=== PATIENT | female | born 1950 | race Hispanic/Latino ===

== ENCOUNTER 2021-08-08 05:21 | Emergency (ER) | payer SELFPAY ==
[2021-08-08] VITALS (16 sets, daily range): BP systolic 90–147; BP diastolic 59–89; PULSE 58–61; RESP 14–18; TEMP 36.2; O2SAT 97–100
--- NOTE | ~2021-08-08 | CT_ITS ---
EXAMINATION: CT brain wo con DATE: 08/08/2021 05:56 INDICATION: Headache and dizziness TECHNIQUE: Computed tomography (CT) of the head was performed without intravenous contrast. The dose- length product was 605.33 mGy-cm. Automated exposure control and iterative reconstruction technique w ere employed. COMPARISON: None FINDINGS: Mild generalized atrophy. There are scattered mild periventricular and subcortical white ma tter changes, most likely related to small vessel ischemic disease (microangiopathy). Paranasal sinus es and mastoids are pneumatized. There is intracranial atherosclerosis. No depressed skull fractures. No acute intracranial hemorrhage, infarction, mass or mass effect. IMPRESSION: 1. No acute intracranial abnormality. 2: Chronic age-related findings. Reviewed, dictated and finalized at location A.
--- NOTE | 2021-08-08 05:39 | ED.HA ---
HPI - Headache General Chief Complaint: Headache <Farooq Antoine MD - Last Filed: 08/13/21 13:37> Stated Complaint: headaches, dry mouth <Farooq Antoine MD - Last Filed: 08/13/21 13:37> Time Seen by Provider: 08/08/21 05:26 <Farooq Antoine MD - Last Filed: 08/13/21 13:37> Source: patient and family <Farooq Antoine MD - Last Filed: 08/13/21 13:37> Mode of arrival: ambulatory <Farooq Antoine MD - Last Filed: 08/13/21 13:37> Limitations: language barrier <Farooq Antoine MD - Last Filed: 08/13/21 13:37> History of Present Illness HPI Narrative: 71-year-old nondiabetic was brought in by family with complaints of headache for last 1 week, not feeling well for past few days. Woke up with headache. Family states that she recently moved from [place] 3 months ago presently not taking any medication for diabetes. Also complains of dry mouth. No history of fever or chills or abdominal pain. <Farooq Antoine MD - Last Filed: 08/13/21 13:37> MD elicited complaint: headache <Farooq Antoine MD - Last Filed: 08/13/21 13:37> Pertinent past history: other (diabetes) <Farooq Antoine MD - Last Filed: 08/13/21 13:37> Onset (ago): week(s) (1) <Farooq Antoine MD - Last Filed: 08/13/21 13:37> Location: occipital <Farooq Antoine MD - Last Filed: 08/13/21 13:37> Quality & Timing: aching <Farooq Antoine MD - Last Filed: 08/13/21 13:37> Exacerbating factors: none <Farooq Antoine MD - Last Filed: 08/13/21 13:37> Relieving factors: nothing <Farooq Antoine MD - Last Filed: 08/13/21 13:37> Related Data Allergies/Adverse Reactions: Allergies Allergy/AdvReac Type Severity Reaction Status Date / Time No Known Allergies Allergy Verified 08/08/21 05:30 <Farooq Antoine MD - Last Filed: 08/13/21 13:37> Review of Systems Constitutional: Constitutional: Reports no additional constitutional complaints <Farooq Antoine MD - Last Filed: 08/13/21 13:37> Eyes: Eyes: Reports no additional eye complaints <Farooq Antoine MD - Last Filed: 08/13/21 13:37> ENT: Reports system reviewed and no additional complaints, except as documented <Farooq Antoine MD - Last Filed: 08/13/21 13:37> Cardiovascular: Cardiovascular: Reports no additional cardiovascular complaints <Farooq Antoine MD - Last Filed: 08/13/21 13:37> Respiratory: Respiratory: Reports no additional respiratory complaints <Farooq Antoine MD - Last Filed: 08/13/21 13:37> Gastrointestinal: Gastrointestinal: Reports no additional gastrointestinal complaints <Farooq Antoine MD - Last Filed: 08/13/21 13:37> Musculoskeletal: Musculoskeletal: Reports no additional musculoskeletal complaints <Farooq Antoine MD - Last Filed: 08/13/21 13:37> Neurologic: Reports as per HPI <Farooq Antoine MD - Last Filed: 08/13/21 13:37> Endocrine: Endocrine: Reports as per HPI, Reports fatigue and Reports polydipsia <Farooq Antoine MD - Last Filed: 08/13/21 13:37> Hematologic/Lymphatic: Hematologic/Lymphatic: Reports no additional hematologic/lymphatic complaints <Farooq Antoine MD - Last Filed: 08/13/21 13:37> Exam Narrative: GENERAL: Well-appearing, well-nourished, and in no acute distress. HEAD: Normocephalic, atraumatic. EYES: PERRLA and EOMI. NECK: Supple. CHEST: Clear to auscultation. No respiratory distress. HEART: Regular rate and rhythm. No murmur heard. Normal peripheral pulses. ABDOMEN: Soft, nontender, nondistended, normal active bowel sounds. EXTREMITIES: Normal range of motion. No edema. SKIN: Warm, dry, no rash. NEURO: No focal deficits. Alert and oriented x3. PSYCH: Normal mood and affect. <Farooq Antoine MD - Last Filed: 08/13/21 13:37> Course Course Emergency Course: 71-year-old with a history of headache, diabetes not on any medication for last several months. Patient does not recall the name of the medication that she was taking in [place]. Her sugars are elevated.
[2021-08-08 05:41] LABS: Glucose Point of Care 315 mg/dl (65-105)
[2021-08-08 05:47] LABS: Basophils Absolute Auto 0.1 K/mm3 (0.0-0.1); Basophils Percent Auto 0.7 % (0.2-1.2); Eosinophils Absolute Auto 0.2 K/mm3 (0-0.3); Eosinophils Percent Auto 2.7 % (0-4.4); Hematocrit 40.3 % (37.0-47.0); Hemoglobin 14.2 g/dL (12.0-15.0); Immature Granulocyte Absolute 0.02 K/mm3 (0.00-0.031); Immature Granulocyte Percent A 0.3 % (0-0.5); Lymphocytes Absolute Auto 3.01 K/mm3 (0.9-3.2); Lymphocytes Percent Auto 41.1 % (18.3-44.2); Mean Corpuscular HGB Conc 35.2 g/dl (32-36); Mean Corpuscular Hemoglobin 31.3 pg (26-34); Mean Corpuscular Volume 88.8 fl (80-100); Mean Platelet Volume 10.9 fl (7.4-10.4); Monocytes Absolute Auto 0.7 K/mm3 (0.1-0.6); Monocytes Percent Auto 9.4 % (2.6-8.5); Neutrophils Absolute Auto 3.4 K/mm3 (1.3-6.7); Neutrophils Percent Auto 45.8 % (45.5-73.1); Platelet Count Result 178 k/mm3 (150-375); Red Blood Count 4.54 M/mm3 (4.2-5.4); Red Cell Distribution Width 11.9 % (11.5-14.5); White Blood Count 7.3 K/mm3 (4.5-10.0)
[2021-08-08] MEDS: SODIUM CHLORIDE 0.9% IV 1,000 ML 100 ML IV CONT (05:57)
[2021-08-08] MEDS: ONDANSETRON INJ 4 MG/2 ML VIAL IV PUSH (05:58)
[2021-08-08] MEDS: KETOROLAC 30 MG/ML VIAL (*BKC) 15 MG IV PUSH (05:58)
[2021-08-08 06:05] LABS: Alanine Aminotransferase 29 U/L (6-35); Albumin Level 4.2 g/dL (3.5-5.1); Alkaline Phosphatase 119 U/L (38-126); Anion Gap 7 mmol/L (8-16); Aspartate Amino Transferase 30 U/L (14-36); Bilirubin,Total 0.7 mg/dL (0.2-1.3); Blood Urea Nitrogen 13 mg/dL (7-17); Calcium 8.3 mg/dL (8.4-10.2); Carbon Dioxide 24 mmol/L (22-30); Chloride 103 mmol/L (98-107); Estimated Glomerular Filt Rate > 60; Glucose 321 mg/dL (65-110); Potassium 3.8 mmol/L (3.4-5.0); Sodium 134 mmol/L (137-145)
[2021-08-08 06:35] LABS: Appearance Urine Clear (Clear); Bilirubin Urine Negative (Negative); Blood Urine Negative (Negative); Color Urine Yellow (Yellow); Glucose Urine UA 2+ mg/dL (Negative); Ketones Urine Negative (Negative); Leukocyte Esterase Ur Negative LEU/UL (Negative); Nitrate Urine Negative (Negative); Protein Urine Negative (Negative); Urobilinogen Urine 0.2 mg/dL (<2.0); pH Urine 5.5 (5.0-9.0)
[2021-08-08] MEDS: INSULIN HUMAN REGULAR (*BKC) 100 UNITS/ML 6 UNITS SUB-Q (06:35)
[2021-08-08] MEDS: MORPHINE SULFATE (*CRX) 2 MG/ML INJ IV PUSH (06:36)
[2021-08-08 06:38] LABS: Bacteria Urine Trace /hpf; Squamous Epithelial Cell Urine Occasional /hpf (Few); WBC Urine 16-20 /hpf
[2021-08-08 06:39] LABS: Add Urine Microscopic? YES
--- NOTE | 2021-08-08 07:35 | PC.NURSE ---
CT notified for CT results, will contact radiologist to get results read.
[2021-08-08 07:52] LABS: Glucose Point of Care 276 mg/dl (65-105)
[2021-08-08] MEDS: MECLIZINE HCL 25 MG TABLET PO (09:21)
== END 2021-08-08 11:08 | disposition home or self-care (01) ==
PROVIDERS: Emergency Provider Family Medicine
DX: E11.65 Type 2 diabetes mellitus with hyperglycemia (principal); R51.9 Headache, unspecified
CPT/HCPCS: 36415; 70450; 80053; 81001; 82948; 85025; 87086; 87088; 87147; 96361; 96374; 96375; 99284; A9270; J1815; J1885; J2270; J2405; J7030

== ENCOUNTER 2021-11-17 07:45 | Emergency (ER) | payer SELFPAY ==
[2021-11-17] VITALS (16 sets, daily range): BP systolic 92–144; BP diastolic 62–82; PULSE 58–68; RESP 12–19; TEMP 36.4; O2SAT 95–100
--- NOTE | ~2021-11-17 | XR_ITS ---
EXAMINATION: XR chest 1V portable 11/17/2021 09:05 INDICATION: Headache and nausea PROCEDURE: AP portable chest COMPARISON: No prior studies for comparison. FINDINGS: The lungs are clear. The cardiomediastinal silhouette is within normal limits. There are no pleural effusions. There is no pneumothorax suspected. IMPRESSION: 1: NO ACUTE CARDIOPULMONARY DISEASE. Reviewed, dictated and finalized at location A.
--- NOTE | ~2021-11-17 | CT_ITS ---
EXAMINATION: CTA brain carotid DATE: 11/17/2021 11:28 CDT INDICATION: Headache. TECHNIQUE: Computed tomographic angiography (CTA) of the head was performed without and with 100 mL O mnipaque-350 intravenous contrast. CTA of the neck was performed with intravenous contrast. The dose- length product was 1517.94 mGy-cm. Maximum intensity projection and volume rendered 3D-reconstruction s were created by the technologist on a separate workstation. Automated exposure control and iterativ e reconstruction technique were employed. COMPARISON: CT dated 08/08/2021 FINDINGS: HEAD CTA: No acute intracranial hemorrhage, infarction, mass or mass effect. There are scattered mild periventricular and subcortical white matter changes, most likely related to small vessel ischemic d isease (microangiopathy). No ventriculomegaly or midline shift. Small chronic right lacunar infarctio n. Paranasal sinuses are unremarkable. No depressed skull fractures. Mastoids are pneumatized. There is mild atherosclerosis in the cavernous sinuses. The anterior, middle and posterior cerebral arterie s are symmetric without significant stenosis, occlusion or aneurysm. NECK CTA: There is ascending thoracic aortic aneurysm measuring 4.8 cm, partially visualized. There a re dilated pulmonary arteries consistent with pulmonary hypertension. There is atherosclerosis of the aortic arch. No evidence for aortic significant vertebral stenosis or dissection. No evidence for si gnificant stenosis, dissection or occlusion of the internal carotid arteries. Thyroid gland contains multiple low-density masses and coarse calcifications. Consider correlation with ultrasound. There is 0% stenosis of the proximal right internal carotid artery relative to normal distal artery l umen diameter (NASCET criteria). There is 0% stenosis of the proximal left internal carotid artery re lative to normal distal artery lumen diameter. IMPRESSION: 1: No significant vascular abnormality of the head or neck. Mild intracranial atherosclerosis. 2: Partially visualized ascending thoracic aortic aneurysm measuring 4.8 cm. 3: Small chronic right lacunar infarction. 4: Chronic age-related findings. Reviewed, dictated and finalized at location A.
--- NOTE | 2021-11-17 08:22 | ECG_ITS ---
Measurements Intervals [place] Rate: 59 P: -21 [place]: 147 QRS: -30 QRSD: 92 T: 0 QT: 411 QTc: 410 Interpretive Statements SINUS BRADYCARDIA INCOMPLETE RIGHT BUNDLE BRANCH BLOCK DELAYED PRECORDIAL R/S TRANSITION CONSIDER INFERIOR INFARCT, AGE INDETERMINATE NONSPECIFIC T-WAVE ABNORMALITY- ANTEROLAT/HIGH LAT LEADS BASELINE WANDER- II ABNORMAL ECG NO PREVIOUS ECG AVAILABLE FOR COMPARISON Electronically Signed On 11-17-2021 13:50:06 CDT by Doroteo Dumont D.O.
--- NOTE | 2021-11-17 08:29 | ED.HA ---
HPI - Headache General Chief Complaint: Headache Stated Complaint: HENNING DRY MOUTH Time Seen by Provider: 11/17/21 07:59 History of Present Illness HPI Narrative: Patient is a 71-year-old female who presents ER with headache. 10/10 and bitemporal/frontal. Began at 4 AM. No alleviating factors. Reports she feels like her vision is a little darker than typical. No fevers or chills or sweats. No trauma. Has had headaches like this in the past. Has history of CVA and diabetes. Patient is Pakistani-speaking and family is at bedside. She has not tried any pain medication. Related Data Allergies Allergy/AdvReac Type Severity Reaction Status Date / Time No Known Allergies Allergy Verified 11/17/21 07:45 Review of Systems Review of Systems: All systems reviewed & are unremarkable except as noted in HPI and below Constitutional: Constitutional: Denies chills and Denies fever(s) Eyes: Eyes: Reports change in vision and Denies photophobia ENT: Denies nasal congestion and Denies sore throat Cardiovascular: Cardiovascular: Denies chest pain Respiratory: Respiratory: Denies cough and Denies dyspnea Gastrointestinal: Gastrointestinal: Denies abdominal pain, Denies nausea and Denies vomiting Neurologic: Denies dizziness, Reports headache(s), Denies focal weakness and Denies numbness PMFSH Past Medical History Medical History (Updated 11/17/21 @ 12:35 by Aleksandr Nielsen MD) CVA (cerebral vascular accident) Diabetes Surgical History Surgical History (Updated 11/17/21 @ 08:31 by Aleksandr Nielsen MD) No history of previous surgery Exam Narrative: GENERAL: Well-appearing, well-nourished, and in no acute distress. HEAD: Normocephalic, atraumatic. EYES: PERRLA and EOMI. ENT: Mucous membranes moist. CHEST: Clear to auscultation. No respiratory distress. HEART: Regular rate and rhythm. Normal peripheral pulses. ABDOMEN: Soft, nontender, nondistended. EXTREMITIES: Normal range of motion. No edema. SKIN: Warm, dry, no rash. NEURO: No focal deficits. No facial droop. Alert and oriented x3. Course Course Emergency Course: Headache resolved with morphine. Labs unremarkable. Discharge home. Patient does have outpatient follow-up scheduled with PCP. Patient family educated about thoracic aortic aneurysm and need for follow-up and monitoring. Vital Signs Vital signs: Vital Signs Temperature 97.6 F 11/17/21 08:01 Pulse Rate 59 L 11/17/21 08:01 Respiratory Rate 14 11/17/21 08:01 Blood Pressure 143/80 H 11/17/21 08:01 Pulse Oximetry 100 11/17/21 08:01 Temperature 97.6 F 11/17/21 08:01 Pulse Rate 62 11/17/21 12:16 Respiratory Rate 17 11/17/21 12:16 Blood Pressure 112/70 11/17/21 12:16 Pulse Oximetry 97 11/17/21 12:16 MDM - Headache Lab Data Result diagrams: 11/17/21 09:37 11/17/21 10:04 Labs: Lab Results 11/17/21 11/17/21 11/17/21 Range/Units 09:17 09:37 09:37 WBC 5.7 (4.5-10.0) K/mm3 RBC 4.49 (4.2-5.4) M/mm3 Hgb 14.0 (12.0-15.0) g/dL Hct 40.6 (37.0-47.0) % MCV 90.4 (80-100) fl MCH 31.2 (26-34) pg MCHC 34.5 (32-36) g/dl RDW 12.0 (11.5-14.5) % Plt Count 197 (150-375) k/mm3 MPV 11.0 H (7.4-10.4) fl Immature Gran % (Auto) 0.4 (0-0.5) % Neut % (Auto) 48.4 (45.5-73.1) % Lymph % (Auto) 40.3 (18.3-44.2) % [place] % (Auto) 8.6 H (2.6-8.5) % Eos % (Auto) 1.8 (0-4.4) % Baso % (Auto) 0.5 (0.2-1.2) % Lymph # (Auto) 2.29 (0.9-3.2) K/mm3 [place] # (Auto) 0.5 (0.1-0.6) K/mm3 Eos # (Auto) 0.1 (0-0.3) K/mm3 Baso # (Auto) 0.0 (0.0-0.1) K/mm3 Abs Immat Gran (auto) 0.02 (0.00-0.031) K/mm3 Absolute Neuts (auto) 2.8 (1.3-6.7) K/mm3 Absolute Nucleated RBC 0.0 (0.0-0.012) K/mm3 Nucleated RBC % 0.0 (0.0-0.2) % PT 13.1 (11.1-14.7) Seconds INR 1.0 APTT 21.9 L (22.3-36.8) SECONDS Sodium (137-145) mmol/L Potassium (3.
[2021-11-17 09:25] LABS: Appearance Urine Clear (Clear); Bilirubin Urine Negative (Negative); Blood Urine Negative (Negative); Color Urine Yellow (Yellow); Glucose Urine UA 1+ mg/dL (Negative); Ketones Urine Negative (Negative); Leukocyte Esterase Ur Negative LEU/UL (Negative); Nitrate Urine Negative (Negative); Protein Urine Negative (Negative); Urobilinogen Urine 0.2 mg/dL (<2.0)
[2021-11-17 09:30] LABS: Bacteria Urine Trace /hpf; RBC Urine 0-2 /hpf (0-2); WBC Urine 0-3 /hpf
[2021-11-17 09:31] LABS: Add Urine Microscopic? YES
[2021-11-17 09:43] LABS: Basophils Percent Auto 0.5 % (0.2-1.2); Eosinophils Absolute Auto 0.1 K/mm3 (0-0.3); Eosinophils Percent Auto 1.8 % (0-4.4); Hematocrit 40.6 % (37.0-47.0); Immature Granulocyte Absolute 0.02 K/mm3 (0.00-0.031); Immature Granulocyte Percent A 0.4 % (0-0.5); Lymphocytes Absolute Auto 2.29 K/mm3 (0.9-3.2); Lymphocytes Percent Auto 40.3 % (18.3-44.2); Mean Corpuscular HGB Conc 34.5 g/dl (32-36); Mean Corpuscular Hemoglobin 31.2 pg (26-34); Mean Corpuscular Volume 90.4 fl (80-100); Monocytes Absolute Auto 0.5 K/mm3 (0.1-0.6); Monocytes Percent Auto 8.6 % (2.6-8.5); Neutrophils Absolute Auto 2.8 K/mm3 (1.3-6.7); Neutrophils Percent Auto 48.4 % (45.5-73.1); Platelet Count Result 197 k/mm3 (150-375); Red Blood Count 4.49 M/mm3 (4.2-5.4); White Blood Count 5.7 K/mm3 (4.5-10.0)
[2021-11-17 09:53] LABS: Partial Thromboplastin Time 21.9 SECONDS (22.3-36.8); Prothrombin Time 13.1 Seconds (11.1-14.7)
[2021-11-17] MEDS: MORPHINE SULFATE (*CRX) 4 MG/ML INJ IV PUSH (10:04)
[2021-11-17 10:31] LABS: Anion Gap 9 mmol/L (8-16); Blood Urea Nitrogen 7 mg/dL (7-17); Calcium 8.2 mg/dL (8.4-10.2); Carbon Dioxide 24 mmol/L (22-30); Chloride 105 mmol/L (98-107); Estimated Glomerular Filt Rate > 60; Glucose 231 mg/dL (65-110); Potassium 3.3 mmol/L (3.4-5.0); Sodium 138 mmol/L (137-145)
[2021-11-17 10:42] LABS: Troponin I < 0.012 ng/mL (0.000-0.034)
[2021-11-17] MEDS: SODIUM CHLORIDE 0.9% IV 1,000 ML 999 ML IV CONT (14:27)
[2021-11-17] MEDS: MECLIZINE HCL 25 MG TABLET PO (14:27)
== END 2021-11-17 16:22 | disposition home or self-care (01) ==
PROVIDERS: Emergency Provider Emergency Medicine
DX: R51.9 Headache, unspecified (principal); I71.2 Thoracic aortic aneurysm, without rupture; R42 Dizziness and giddiness; E11.9 Type 2 diabetes mellitus without complications; Z86.73 Personal history of transient ischemic attack (TIA), and cerebral infarction without residual deficits; Z79.84 Long term (current) use of oral hypoglycemic drugs; I67.2 Cerebral atherosclerosis
CPT/HCPCS: 36415; 70496; 70498; 71045; 80048; 81001; 84484; 85025; 85610; 85730; 93005; 96361; 96374; 99284; A9270; J2270; J7030; Q9967

== ENCOUNTER 2021-11-19 16:02 | Emergency (ER) | payer SELFPAY ==
[2021-11-19] VITALS (21 sets, daily range): BP systolic 96–141; BP diastolic 75–85; PULSE 63–90; RESP 13–20; TEMP 36.4; O2SAT 94–100
--- NOTE | ~2021-11-19 | CT_ITS ---
EXAMINATION: CT abdomen pelvis w con DATE: 11/19/2021 18:06 INDICATION: Left lower abdominal pain TECHNIQUE: Computed tomography (CT) of the abdomen and pelvis was performed with 100 mL Omnipaque-350 intravenous contrast. Automated exposure control and iterative reconstruction technique were employe d. The dose-length product was 194.18 mGy-cm. COMPARISON: None FINDINGS: Calcified nodule at the lingula consistent with old granulomatous disease. Heart size is normal. No p ericardial or pleural effusion. Aortic valve calcification. Ascending thoracic aortic aneurysm measur ing up to 4.6 cm in maximal diameter. Abdominal aorta and visualized descending thoracic aorta are no rmal in caliber with no dissection. Liver, gallbladder, spleen, pancreas, bilateral adrenal glands an d kidneys are normal. Bladder, uterus and bilateral adnexa are unremarkable. No abnormal bowel wall t hickening or obstruction. The appendix is not visualized. No pericecal inflammatory change to suggest acute appendicitis. No free intraperitoneal gas or fluid. No pathologically enlarged abdominal or pe lvic lymphadenopathy. Mild thoracolumbar dextrocurvature with mild spondylosis. Chronic appearing com pression fractures at L1 and L2. IMPRESSION: 1. No acute intra-abdominal/pelvic process. 2. 4.6 similar ascending thoracic aortic aneurysm. Reviewed, dictated and finalized at location A.
--- NOTE | 2021-11-19 16:20 | ECG_ITS ---
Measurements Intervals [place] Rate: 80 P: 12 NE: 167 QRS: -75 QRSD: 86 T: 27 QT: 370 QTc: 427 Interpretive Statements SINUS RHYTHM LEFT ANTERIOR FASCICULAR BLOCK ABNORMAL ECG COMPARED TO ECG 11/17/2021 10:41:35 HEART RATE HAS INCREASED Electronically Signed On 11-19-2021 21:48:46 CDT by Doroteo Dumont D.O.
[2021-11-19 16:26] LABS: Glucose Point of Care 327 mg/dl (65-105)
[2021-11-19 16:47] LABS: Alanine Aminotransferase 23 U/L (6-35); Albumin Level 4.5 g/dL (3.5-5.1); Alkaline Phosphatase 121 U/L (38-126); Anion Gap 15 mmol/L (8-16); Aspartate Amino Transferase 28 U/L (14-36); Bilirubin,Total 0.4 mg/dL (0.2-1.3); Blood Urea Nitrogen 16 mg/dL (7-17); Calcium 8.7 mg/dL (8.4-10.2); Carbon Dioxide 24 mmol/L (22-30); Chloride 98 mmol/L (98-107); Estimated Glomerular Filt Rate > 60; Glucose 349 mg/dL (65-110); Potassium 3.9 mmol/L (3.4-5.0); Sodium 137 mmol/L (137-145)
[2021-11-19 16:50] LABS: Basophils Percent Auto 0.4 % (0.2-1.2); Eosinophils Absolute Auto 0.2 K/mm3 (0-0.3); Eosinophils Percent Auto 2.4 % (0-4.4); Hematocrit 41.1 % (37.0-47.0); Hemoglobin 14.3 g/dL (12.0-15.0); Immature Granulocyte Absolute 0.01 K/mm3 (0.00-0.031); Immature Granulocyte Percent A 0.1 % (0-0.5); Lymphocytes Absolute Auto 2.85 K/mm3 (0.9-3.2); Lymphocytes Percent Auto 42.3 % (18.3-44.2); Mean Corpuscular HGB Conc 34.8 g/dl (32-36); Mean Corpuscular Hemoglobin 31.4 pg (26-34); Mean Corpuscular Volume 90.1 fl (80-100); Mean Platelet Volume 11.3 fl (7.4-10.4); Monocytes Absolute Auto 0.6 K/mm3 (0.1-0.6); Monocytes Percent Auto 9.1 % (2.6-8.5); Neutrophils Absolute Auto 3.1 K/mm3 (1.3-6.7); Neutrophils Percent Auto 45.7 % (45.5-73.1); Platelet Count Result 206 k/mm3 (150-375); Red Blood Count 4.56 M/mm3 (4.2-5.4); Red Cell Distribution Width 11.9 % (11.5-14.5); White Blood Count 6.7 K/mm3 (4.5-10.0)
[2021-11-19] MEDS: INSULIN HUMAN REGULAR (*BKC) 100 UNITS/ML SUB-Q (18:05)
[2021-11-19] MEDS: SODIUM CHLORIDE 0.9% IV 1,000 ML 999 ML IV CONT (18:05)
--- NOTE | 2021-11-19 18:18 | ED.GENADULT ---
HPI - General Adult General Chief complaint: Neck Pain/Injury Stated complaint: neck pain Time Seen by Provider: 11/19/21 16:25 Source: patient, family and RN notes reviewed Limitations: language barrier (used mash filter cloth changer who spoke with family. unable to find patient's dialect) History of Present Illness HPI narrative: This is a 71 year old female with history of uncontrolled DM who presents for evaluation intermittent headaches and elevated blood sugar. PAtient has intermittent headache for months and her daughter states they are happening more frequently. She was in ER 2 days ago for evaluation of headache with dizziness. She has CT Brain and carotid with no significant abnormalities. Patient went for outpatient follow up with PCP today, and she was referred back to ER because her blood sugar was high. She takes levemir 10 units at night. She denies nausea, vomiting, chest pain, sob, or diarrhea. She reports constipation and mid abdominal pain. Her abdominal started today in clinic. Her headaches occur frontal . She does not take any medication for her headaches. She denies any focal deficits. Related Data Home Medications Medication Instructions Recorded Confirmed insulin detemir U-100 100 unit/mL 10 unit subcut 11/19/21 (3 mL) subcutaneous pen (Levemir FlexTouch U-100 Insulin) Allergies Allergy/AdvReac Type Severity Reaction Status Date / Time No Known Allergies Allergy Verified 11/19/21 16:48 Review of Systems Review of Systems: All systems reviewed & are unremarkable except as noted in HPI and below Constitutional: Constitutional: Denies chills, Denies fatigue, Denies fever(s) and Denies weakness Eyes: Eyes: Reports change in vision ENT: Denies nasal congestion and Denies sore throat Cardiovascular: Cardiovascular: Denies chest pain and Denies rapid heart rate Respiratory: Respiratory: Denies chest congestion, Denies cough and Denies dyspnea Gastrointestinal: Gastrointestinal: Reports abdominal pain, Reports constipation and Denies nausea Genitourinary: Genitourinary: Denies dysuria Musculoskeletal: Musculoskeletal: Denies back pain Neurologic: Reports headache(s) and Denies focal weakness PMF Past Medical History Medical History (Updated 11/19/21 @ 19:26 by Sol Handley MD) CVA (cerebral vascular accident) Diabetes Surgical History Surgical History (Updated 11/17/21 @ 08:31 by Aleksandr Nielsen MD) No history of previous surgery Exam Narrative: GENERAL: Well-appearing, well-nourished, and in no acute distress. HEAD: Normocephalic, atraumatic EYES: PERRLA and EOMI, conjunctiva clear without discharge EARS: TM's clear bilaterally without erythema or dullness NOSE: Nares clear, no rhinorrhea or epistaxis THROAT:Mucous membranes moist, Oropharynx normal without erythema, exudate, peritonsillar swelling or fluctuance NECK: Supple, without lymphadenopathy or mass RESPIRATORY: No respiratory distress, Airway patent, Respirations non-labored, Clear to auscultation without rales, rhonchi or wheeze HEART: Regular rate and rhythm. No murmur heard. Normal peripheral pulses. ABDOMEN: Soft, TTP LLQ, nondistended, normal active bowel sounds. No masses. No rebound or guarding, No organomegaly. EXTREMITIES: No edema, normal strength with full range of motion. SKIN: Warm, dry, normal color without rash NEURO: Alert and oriented x3. CN 2-12 grossly intact. No focal deficits. ambulate with steady gait, normal finger to nose PSYCH: Normal mood and affect. Course Reevaluation(s) Reevaluation #1: PAtient was able to ambulate with steady gait. No focal weakness. BS has decreased. No acute findings. I reviewed ER visit with CTA 2 days. PAtient is stable for discharge. She will need to follow up with PCP . Date: 11/19/21 Time: 19:22 Vital Signs Vital signs: Vital Signs Temperature 97.6 F 11/19/21 16:13 Pulse Rate 78 11/19/21 16:13 Respiratory Rate 1
[2021-11-19 18:42] LABS: Appearance Urine Clear (Clear); Bilirubin Urine Negative (Negative); Blood Urine Trace-intact (Negative); Color Urine Light Yellow (Yellow); Glucose Urine UA 2+ mg/dL (Negative); Ketones Urine Negative (Negative); Leukocyte Esterase Ur Negative LEU/UL (Negative); Nitrate Urine Negative (Negative); Protein Urine Negative (Negative); Specific Grav Ur 1.015 (1.001-1.035); Urobilinogen Urine 0.2 mg/dL (<2.0); pH Urine 6.5 (5.0-9.0)
[2021-11-19 18:49] LABS: RBC Urine 0-2 /hpf (0-2); Squamous Epithelial Cell Urine Rare /hpf (Few); WBC Urine 0-3 /hpf
[2021-11-19 18:56] LABS: Add Urine Microscopic? YES
[2021-11-19 19:14] LABS: Glucose Point of Care 180 mg/dl (65-105)
[2021-11-19 19:24] LABS: Lipase 92 U/L (23-300)
== END 2021-11-19 20:00 | disposition home or self-care (01) ==
PROVIDERS: Emergency Medicine; Emergency Provider General Practice
DX: E11.65 Type 2 diabetes mellitus with hyperglycemia (principal); R10.32 Left lower quadrant pain; Z86.73 Personal history of transient ischemic attack (TIA), and cerebral infarction without residual deficits; I71.2 Thoracic aortic aneurysm, without rupture; I44.4 Left anterior fascicular block; Z79.4 Long term (current) use of insulin
CPT/HCPCS: 36415; 74177; 80053; 81001; 82948; 83690; 85025; 93005; 96365; 99284; J0131; J1815; J7030; Q9967

== ENCOUNTER 2022-02-09 13:04 | Emergency (ER) | payer SELFPAY ==
[2022-02-09] VITALS (11 sets, daily range): BP systolic 113–147; BP diastolic 68–79; PULSE 67–72; RESP 16; TEMP 36.4; O2SAT 96–100
--- NOTE | ~2022-02-09 | CT_ITS ---
EXAMINATION: CT abdomen pelvis w con DATE: 02/09/2022 19:23 INDICATION: Diffuse abdominal pain. TECHNIQUE: Computed tomography (CT) of the abdomen and pelvis was performed with 100 mL Omnipaque-350 intravenous contrast. Automated exposure control and iterative reconstruction technique were employe d. The dose-length product was 195.46 mGy-cm. COMPARISON: 03/21/2021 FINDINGS: Atelectasis at the bilateral lung bases. Calcified nodule at the lingula consistent with old granulom atous disease. Heart size normal. No pericardial or pleural effusion. Aortic valve calcification. Par britlly visualized ascending thoracic aortic aneurysm the visualized portion which measures up to 4.7 cm in maximal diameter. Small sliding-type hiatal hernia. Liver, gallbladder, spleen, pancreas, bilat eral adrenal glands and kidneys are normal. Large amount of stool scattered throughout the colon. No bowel obstruction. The appendix is not visualized. No pericecal inflammatory change to suggest acute appendicitis. Bladder, uterus and bilateral adnexa are normal. No free intraperitoneal gas or fluid. No pathologically enlarged abdominal or pelvic lymphadenopathy. No change in chronic L1 and L2 compre ssion fractures. IMPRESSION: 1. No acute intra-abdominal/pelvic process. 2. 4.7 cm ascending thoracic aortic aneurysm. 3. Small sliding-type hiatal hernia. Reviewed, dictated and finalized at location A. [employer]
[2022-02-09 14:05] LABS: Glucose Point of Care 235 mg/dl (65-105)
--- NOTE | 2022-02-09 17:19 | ECG_ITS ---
Measurements Intervals [place] Rate: 62 P: 6 [place]: 156 QRS: -48 QRSD: 96 T: 32 QT: 353 QTc: 360 Interpretive Statements SINUS RHYTHM INCOMPLETE RIGHT BUNDLE BRANCH BLOCK [90+ ms QRS DURATION, TERMINAL R IN V1/V2, 40+ ms S IN I/aVL/V4/V5/V6] LEFT ANTERIOR FASCICULAR BLOCK [QRS AXIS <= -45, QR IN I, RS IN II] NONSPECIFIC T-WAVE ABNORMALITY COMPARED TO ECG 11/19/2021 16:52:34 INCOMPLETE RIGHT BUNDLE-BRANCH BLOCK NOW PRESENT T-WAVE ABNORMALITY NOW PRESENT Electronically Signed On 02-09-2022 22:10:44 SENIOR INFRASTRUCTURE ENGINEER by Ofelia Meza M.D.
--- NOTE | 2022-02-09 17:20 | ED.ABDPAIN ---
HPI - Abdominal Pain General Chief Complaint: Abdominal Pain Stated Complaint: abd pain/headache Time Seen by Provider: 02/09/22 17:06 Source: patient, family and old records reviewed Mode of arrival: ambulatory Limitations: language barrier History of Present Illness HPI narrative: Patient is a 71-year-old female who presents the ED with report of abdominal pain and headache. Patient is non-Cambodian speaking. Family member at bedside assisted in providing information. [employer] human resources operations manager was offered and declined. Family member states patient developed diffuse abdominal pain and frontal headache this morning. She has not taken anything for her symptoms. Patient has a history of type 2 diabetes mellitus and family became concerned and brought her into the ED. They did not check her blood sugar today, but they state it was around 250s the last 2 days. Patient denies any nausea, vomiting, diarrhea, constipation, fevers, cough or cold symptoms, chest pain, difficulty breathing. Patient takes metformin 500 mg twice daily and Levemir 10 units at bedtime. Per patient's records, patient has been seen in the ED several times this year for similar symptoms. Related Data Home Medications Medication Instructions Recorded Confirmed insulin detemir U-100 100 unit/mL 10 unit subcut 11/19/21 (3 mL) subcutaneous pen (Levemir FlexTouch U-100 Insulin) Allergies Allergy/AdvReac Type Severity Reaction Status Date / Time No Known Allergies Allergy Verified 02/09/22 13:58 Review of Systems Review of Systems: CONSTITUTIONAL: Denies fever, chills, or sweats. ENT: Denies rhinorrhea, congestion, sore throat. CARDIOVASCULAR: Denies chest pain. RESPIRATORY: Denies cough or dyspnea. GASTROINTESTINAL: Reports diffuse abdominal pain. Denies constipation, nausea, vomiting, or diarrhea. NEUROLOGIC: Reports frontal headache. Denies tingling, numbness, or weakness. All systems reviewed & are unremarkable except as noted in HPI and below PMFSH Past Medical History Medical History CVA (cerebral vascular accident) Diabetes Surgical History Surgical History No history of previous surgery Social History Social History (Updated 02/09/22 @ 17:54 by Liya Fraire PA-C) Smoking status: Unknown if ever smoked Exam Narrative: GENERAL: Well appearing, well-nourished, non-toxic, in no acute distress. HEAD: Normocephalic, atraumatic. EYES: PERRLA/EOMI, conjunctiva clear. NECK: Supple. No adenopathy, no masses. RESPIRATORY: Airway patent, respirations nonlabored. Clear to auscultation bilaterally, no rales, rhonchi, wheezing. CARDIOVASCULAR: Regular rate and rhythm without murmurs, rubs, or gallops. Radial pulses 2+ and equal bilaterally. ABDOMINAL: Soft, diffuse nonlocalized tenderness to palpation, nondistended, no hepatosplenomegaly. Normoactive BS. MUSCULOSKELETAL: Moves all extremities. Strength/ROM intact without gross deformities. SKIN: Warm, dry, normal color. No rashes. NEURO: A&O X3. Speech clear. Cranial nerves II-XII grossly intact. Steady gait. No ataxic movements. No focal deficits. PSYCHIATRIC: Appropriate mood and affect. Normal interaction. Course Vital Signs Vital signs: Vital Signs Temperature 97.5 F L 02/09/22 13:54 Pulse Rate 67 02/09/22 13:54 Respiratory Rate 16 02/09/22 13:54 Blood Pressure 128/71 02/09/22 13:54 Pulse Oximetry 100 02/09/22 13:54 Oxygen Delivery Room Air 02/09/22 13:54 Temperature 97.5 F L 02/09/22 13:54 Pulse Rate 72 02/09/22 22:09 Respiratory Rate 16 02/09/22 22:09 Blood Pressure 124/68 02/09/22 22:09 Pulse Oximetry 98 02/09/22 22:09 Oxygen Delivery Room Air 02/09/22 13:54 MDM - Abdominal Pain MDM Narrative Medical decision making narrative: Patient presented to ED with abdominal pain and headache. Has not taken anyt
[2022-02-09] MEDS: SODIUM CHLORIDE 0.9% IV 1,000 ML 999 ML IV CONT (17:40)
[2022-02-09 18:00] LABS: Basophils Absolute Auto 0.1 K/mm3 (0.0-0.1); Basophils Percent Auto 0.7 % (0.2-1.2); Eosinophils Absolute Auto 0.1 K/mm3 (0-0.3); Eosinophils Percent Auto 1.7 % (0-4.4); Hemoglobin 14.6 g/dL (12.0-15.0); Immature Granulocyte Absolute 0.01 K/mm3 (0.00-0.031); Immature Granulocyte Percent A 0.1 % (0-0.5); Lymphocytes Absolute Auto 2.89 K/mm3 (0.9-3.2); Lymphocytes Percent Auto 41.2 % (18.3-44.2); Mean Corpuscular Hemoglobin 30.9 pg (26-34); Mean Corpuscular Volume 91.1 fl (80-100); Monocytes Absolute Auto 0.5 K/mm3 (0.1-0.6); Monocytes Percent Auto 6.7 % (2.6-8.5); Neutrophils Absolute Auto 3.5 K/mm3 (1.3-6.7); Neutrophils Percent Auto 49.6 % (45.5-73.1); Platelet Count Result 202 k/mm3 (150-375); Red Blood Count 4.72 M/mm3 (4.2-5.4); Red Cell Distribution Width 12.3 % (11.5-14.5)
[2022-02-09 18:12] LABS: Alanine Aminotransferase 23 U/L (6-35); Albumin Level 4.7 g/dL (3.5-5.1); Alkaline Phosphatase 116 U/L (38-126); Anion Gap 8 mmol/L (8-16); Aspartate Amino Transferase 26 U/L (14-36); Bilirubin,Total 0.5 mg/dL (0.2-1.3); Blood Urea Nitrogen 9 mg/dL (7-17); Calcium 8.8 mg/dL (8.4-10.2); Carbon Dioxide 28 mmol/L (22-30); Chloride 100 mmol/L (98-107); Estimated Glomerular Filt Rate > 60; Glucose 132 mg/dL (65-110); Lipase 211 U/L (23-300); Potassium 3.6 mmol/L (3.4-5.0); Sodium 136 mmol/L (137-145)
[2022-02-09 18:39] LABS: Influenza A QL RT-PCR Negative (Negative); Influenza B QL RT-PCR Negative (Negative); SARS-CoV-2 RNA PCR Negative
[2022-02-09 21:07] LABS: Add Urine Microscopic? YES; Appearance Urine Slightly Cloudy (Clear); Bilirubin Urine Negative (Negative); Blood Urine Trace-Intact (Negative); Color Urine Light Yellow (Yellow); Glucose Urine UA Negative (Negative); Ketones Urine Negative (Negative); Leukocyte Esterase Ur Negative LEU/UL (Negative); Nitrate Urine Negative (Negative); Protein Urine Negative (Negative); Specific Grav Ur <= 1.005 (1.001-1.035); Urobilinogen Urine 0.2 mg/dL (<2.0); pH Urine 6.5 (5.0-9.0)
[2022-02-09] MEDS: MECLIZINE HCL 25 MG TABLET PO (21:08)
[2022-02-09 21:10] LABS: Bacteria Urine Trace /hpf; Mucus Urine Rare /lpf; Squamous Epithelial Cell Urine Rare /hpf (Few); WBC Urine 31-50 /hpf
[2022-02-09 21:30] LABS: Glucose Point of Care 183 mg/dl (65-105)
== END 2022-02-09 22:13 | disposition home or self-care (01) ==
PROVIDERS: Emergency Provider Physician Assistant
DX: N39.0 Urinary tract infection, site not specified (principal); R42 Dizziness and giddiness; R10.9 Unspecified abdominal pain; I71.21 Aneurysm of the ascending aorta, without rupture; E11.9 Type 2 diabetes mellitus without complications; Z79.4 Long term (current) use of insulin; Z86.73 Personal history of transient ischemic attack (TIA), and cerebral infarction without residual deficits; Z20.822 Contact with and (suspected) exposure to COVID-19
CPT/HCPCS: 36415; 74177; 80053; 81001; 82948; 83690; 85025; 87077; 87086; 87088; 87186; 87636; 93005; 96365; 99284; A9270; J0131; J7030; Q9967

== ENCOUNTER 2022-03-22 13:34 | Emergency (ER) | payer SELFPAY ==
--- NOTE | ~2022-03-22 | XR_ITS ---
EXAMINATION: XR chest 2V DATE: 03/22/2022 17:03 INDICATION: Shortness of breath. Palpitations. TECHNIQUE: Frontal and lateral views of the chest were obtained. COMPARISON: Chest single view 11/17/2021, CT abdomen and pelvis 03/22/2022 FINDINGS: There is no pneumonia, pleural effusion, or pneumothorax. Cardiomegaly is noted. There is a n old healed fracture of right clavicle. IMPRESSION: 1. Cardiomegaly. Reviewed, dictated and finalized at location A. ER DEVELOPMENT DIRECTOR IMPRESSION: 1. Cardiomegaly.
--- NOTE | ~2022-03-22 | CT_ITS ---
EXAMINATION: CT abdomen pelvis w con DATE: 03/22/2022 16:51 INDICATION: Low abdominal pain. TECHNIQUE: Computed tomography (CT) of the abdomen and pelvis was performed with 98 mL Omnipaque 350 intravenous contrast. Automated exposure control and iterative reconstruction technique were employed . The dose-length product was 177.59 mGy-cm. COMPARISON: CT abdomen and pelvis 02/09/2022 FINDINGS: The visualized portions of the lung bases demonstrate mild atelectasis. No pleural effusion . The heart size is normal. There are calcifications of aortic valve. No pericardial effusion. There is ectasia of ascending aorta measuring 4.5 cm . The liver, gallbladder, spleen, pancreas, adrenal gl ands, and kidneys are normal. There are no dilated loops of bowel. The pancreas is not visualized. Th ere are no pathologically enlarged lymph nodes. There is no free intraperitoneal fluid. There is mild lumbar spondylosis. There is a chronic burst fracture of L1. There is a chronic compression fracture of L2. IMPRESSION: 1. Ectasia of ascending aorta measuring 4.5 cm. Reviewed, dictated and finalized at location A. MAN
--- NOTE | ~2022-03-22 | CT_ITS ---
EXAMINATION: CT brain wo con DATE: 03/22/2022 15:22 INDICATION: Dizziness. TECHNIQUE: Computed tomography (CT) of the head was performed without intravenous contrast. The mA wa s adjusted according to patient size. Iterative reconstruction technique was employed. The dose-lengt h product was 605.33 mGy-cm. COMPARISON: Head CT 11/17/2021 FINDINGS: There are scattered areas of low attenuation in the cerebral white matter. There is a small area cystic encephalomalacia in the left frontal lobe yadav radiata. There is no intracranial hemor rhage, acute infarction, or abnormal intracranial mass lesion. The ventricles are normal in size. The re is mild mucosal thickening in the paranasal sinuses. There is a trace left mastoid effusion. The o rbits are normal. IMPRESSION: 1. Small area of chronic cystic encephalomalacia in the left frontal lobe yadav radiata. 2. Mild nonspecific cerebral white matter disease, which likely represents chronic small vessel ische marlo disease. Reviewed, dictated and finalized at location A. LE MOLDER IMPRESSION: 1. Small area of chronic cystic encephalomalacia in the left frontal lobe coron a radiata. 2. Mild nonspecific cerebral white matter disease, which likely represents fence installer foreman ever small vessel ischemic disease.
--- NOTE | 2022-03-22 13:36 | ECG_ITS ---
Measurements Intervals [place] Rate: 80 P: 22 NE: 166 QRS: -53 QRSD: 82 T: 24 QT: 390 QTc: 451 Interpretive Statements SINUS RHYTHM INCOMPLETE RIGHT BUNDLE BRANCH BLOCK LEFT ANTERIOR FASCICULAR BLOCK BASELINE WANDER- II, III, AVR, AVL, AVF, V1-V6 ABNORMAL ECG COMPARED TO ECG 02/09/2022 18:24:43 NO SIGNIFICANT CHANGES Electronically Signed On 03-22-2022 19:17:23 [employer] by Doroteo Dumont D.O.
[2022-03-22 13:47] VITALS: BP 158/83; PULSE 76; RESP 20; TEMP 36.5; O2SAT 98
--- NOTE | 2022-03-22 13:48 | ED.GENADULT ---
HPI - General Adult General Chief complaint: Weakness Stated complaint: Drowsy, unsteady walk Time Seen by Provider: 03/22/22 13:45 Source: patient and family Mode of arrival: ambulatory Limitations: language barrier History of Present Illness HPI narrative: Patient is a 72-year-old female who presents the ED with report of dizziness. Patient is non-Palauan speaking, uses some form of Luxembourgish dialect. Family at bedside assisted in providing information. I did offer to utilize [email or web address] refinery operator light ends recovery, family refused and felt comfortable translating. Patient felt fine yesterday, but reported having room spinning dizziness this morning. She does have history of vertigo and has previously been prescribed meclizine. She states she is out of her meclizine. Patient also reports having a headache, generalized weakness, lower abdominal pain, and an episode of heart palpitations when the dizziness was occurring. Dizziness worse with movement and turning head. Patient denies any fever, nausea, vomiting, chest pain, SOB, focal weakness, vision changes, cough, cold sx's. Related Data Home Medications Medication Instructions Recorded Confirmed insulin detemir U-100 100 unit/mL 10 unit subcut 11/19/21 (3 mL) subcutaneous pen (Levemir FlexTouch U-100 Insulin) Allergies Allergy/AdvReac Type Severity Reaction Status Date / Time No Known Allergies Allergy Verified 02/09/22 13:58 Review of Systems Review of Systems: CONSTITUTIONAL: Denies fever, chills, or sweats. EYES: Denies visual changes. CARDIOVASCULAR: See HPI. RESPIRATORY: See HPI. GASTROINTESTINAL: See HPI. MUSCULOSKELETAL: Denies back pain, joint pain, or myalgia. NEUROLOGIC: See HPI. All systems reviewed & are unremarkable except as noted in HPI and below PMFSH Past Medical History Medical History CVA (cerebral vascular accident) Diabetes Surgical History Surgical History No history of previous surgery Social History Social History Smoking status: Unknown if ever smoked Exam Narrative: GENERAL: Short stature, elderly, non-toxic, in no acute distress. HEAD: Normocephalic, atraumatic. EYES: PERRL/EOMI, conjunctivae clear bilaterally. No nystagmus. NECK: Supple. No adenopathy, no masses. RESPIRATORY: Airway patent, respirations nonlabored. Clear to auscultation bilaterally, no rales, rhonchi, wheezing. CARDIOVASCULAR: Regular rate and rhythm without murmurs, rubs, or gallops. Peripheral pulses 2+ and equal bilaterally. ABDOMINAL: Soft, mild nonlocalized tenderness throughout lower abdomen, nondistended, no hepatosplenomegaly. Normoactive BS. MUSCULOSKELETAL: Moves all extremities. Strength/ROM intact without gross deformities or TTP. No edema. SKIN: Warm, dry, normal color. No rashes. NEURO: A&O X3. Somewhat difficult to perform certain testing due to language barrier, overall patient follows commands. CN II-XII intact. Sensation grossly intact. No ataxic movements. Strength 5/5 in upper and lower extremities bilaterally. Equal infection control practitioner strength bilaterally. No pronator drift. PSYCHIATRIC: Appropriate mood and affect. Normal interaction. Course Vital Signs Vital signs: Vital Signs Temperature 97.7 F 03/22/22 13:47 Pulse Rate 76 03/22/22 13:47 Respiratory Rate 20 03/22/22 13:47 Blood Pressure 158/83 H 03/22/22 13:47 Pulse Oximetry 98 03/22/22 13:47 Oxygen Delivery Room Air 03/22/22 13:47 Temperature 98 F 03/22/22 18:37 Pulse Rate 62 03/22/22 18:37 Respiratory Rate 14 03/22/22 18:37 Blood Pressure 110/75 03/22/22 18:37 Pulse Oximetry 100 03/22/22 18:37 Oxygen Delivery Room Air 03/22/22 13:47 Medical Decision Making MDM Narrative Medical decision making narrative: Patient presented to ED with family with multiple complaints, dizziness,
[2022-03-22 14:08] LABS: Glucose Point of Care 91 mg/dl (65-105)
[2022-03-22 14:30] LABS: Appearance Urine Clear (Clear); Bilirubin Urine Negative (Negative); Blood Urine Trace-intact (Negative); Color Urine Light Yellow (Yellow); Glucose Urine UA Negative (Negative); Ketones Urine Negative (Negative); Leukocyte Esterase Ur Negative LEU/UL (Negative); Nitrate Urine Negative (Negative); Protein Urine Negative (Negative); Urobilinogen Urine 0.2 mg/dL (<2.0)
[2022-03-22 14:40] LABS: Basophils Percent Auto 0.5 % (0.2-1.2); Eosinophils Absolute Auto 0.2 K/mm3 (0-0.3); Eosinophils Percent Auto 1.9 % (0-4.4); Hematocrit 40.9 % (37.0-47.0); Hemoglobin 13.9 g/dL (12.0-15.0); Immature Granulocyte Absolute 0.03 K/mm3 (0.00-0.031); Immature Granulocyte Percent A 0.4 % (0-0.5); Lymphocytes Percent Auto 37.8 % (18.3-44.2); Mean Corpuscular Hemoglobin 31.4 pg (26-34); Mean Corpuscular Volume 92.3 fl (80-100); Mean Platelet Volume 10.9 fl (7.4-10.4); Monocytes Absolute Auto 0.7 K/mm3 (0.1-0.6); Monocytes Percent Auto 9.1 % (2.6-8.5); Neutrophils Percent Auto 50.3 % (45.5-73.1); Platelet Count Result 238 k/mm3 (150-375); Red Blood Count 4.43 M/mm3 (4.2-5.4); Red Cell Distribution Width 12.8 % (11.5-14.5); White Blood Count 7.9 K/mm3 (4.5-10.0)
[2022-03-22 14:42] LABS: Mucus Urine Rare /lpf; WBC Urine 0-3 /hpf
[2022-03-22 14:44] LABS: Add Urine Microscopic? YES
[2022-03-22] MEDS: MECLIZINE HCL 25 MG TABLET PO (14:44)
[2022-03-22] MEDS: SODIUM CHLORIDE 0.9% IV 1,000 ML 999 ML IV CONT (14:45)
[2022-03-22 14:47] VITALS: PULSE 71; RESP 17; O2SAT 98
[2022-03-22 14:50] LABS: Lactic Acid Reflex 1.3 mmol/L (0.7-2.0)
[2022-03-22 15:26] LABS: Alanine Aminotransferase 19 U/L (6-35); Albumin Level 3.7 g/dL (3.5-5.1); Alkaline Phosphatase 101 U/L (38-126); Anion Gap 9 mmol/L (8-16); Aspartate Amino Transferase 29 U/L (14-36); Bilirubin,Total 0.4 mg/dL (0.2-1.3); Blood Urea Nitrogen 10 mg/dL (7-17); Calcium 7.9 mg/dL (8.4-10.2); Carbon Dioxide 24 mmol/L (22-30); Chloride 108 mmol/L (98-107); Estimated Glomerular Filt Rate > 60; Glucose 88 mg/dL (65-110); Potassium 3.5 mmol/L (3.4-5.0); Sodium 141 mmol/L (137-145)
[2022-03-22 15:38] LABS: Troponin I < 0.012 ng/mL (0.000-0.034)
[2022-03-22 15:47] LABS: D Dimer 0.38 ug/mL (<0.48)
[2022-03-22 16:13] VITALS: BP 146/73; PULSE 62; RESP 15; TEMP 36.6; O2SAT 100
[2022-03-22 16:36] LABS: Glucose Point of Care 87 mg/dl (65-105)
[2022-03-22 18:37] VITALS: BP 110/75; PULSE 62; RESP 14; TEMP 36.6; O2SAT 100
--- NOTE | 2022-03-22 19:13 | PC.NURSE ---
1909 Assumed pt care from Sil Gonsalez RN
[2022-03-22 19:20] VITALS: BP 120/67; PULSE 64; RESP 18; O2SAT 98
== END 2022-03-22 19:20 | disposition home or self-care (01) ==
PROVIDERS: Emergency Provider Physician Assistant
DX: R42 Dizziness and giddiness (principal); R10.30 Lower abdominal pain, unspecified; R51.9 Headache, unspecified; I51.7 Cardiomegaly; R90.82 White matter disease, unspecified; I77.819 Aortic ectasia, unspecified site; I45.2 Bifascicular block
CPT/HCPCS: 36415; 70450; 71046; 74177; 80053; 81001; 82948; 83605; 84484; 85025; 85380; 93005; 96361; 96365; 99284; A9270; J0131; J7030; Q9967

== ENCOUNTER 2022-06-04 16:02 | Emergency (ER) | payer MEDICAID, SELFPAY ==
--- NOTE | ~2022-06-04 | XR_ITS ---
EXAMINATION: XR chest 2V Exam Date/Time: 06/04/2022 17:30 CDT HISTORY: cough AND CHEST PAINS WITH SOB FOR 2 WKS, DIABETIC Comparison: 03/14/2022. RESULT: Lines, tubes, and devices: None. Lungs and pleura: Calcified granulomas. Senescent changes. Otherwise clear. Cardiomediastinal silhouette: Stable. Other: No acute osseous or upper abdominal finding. IMPRESSION: No acute cardiopulmonary process. Reviewed, dictated and finalized at location K.
[2022-06-04 16:26] VITALS: BP 137/74; PULSE 71; RESP 16; TEMP 36.5; O2SAT 98
--- NOTE | 2022-06-04 18:13 | ED.URI ---
HPI - URI/Sore Throat General Chief Complaint: Upper Respiratory Infection Stated Complaint: cough Time Seen by Provider: 06/04/22 17:22 Limitations: language barrier History of Present Illness HPI Narrative: Patient is a 72-year-old Czech-speaking female here for evaluation of cough for the past week and a half. States that she has had a dry cough over the past week and a half. She denies any sick contacts. She reports some sore throat and nasal congestion but she has had no fevers, chills, chest pain, leg swelling or shortness of breath. They have not tried any ablr-ryy-sdeijlb medicine for her symptoms. History of diabetes, no new medicines. History obtained using a architecture professor. Related Data Home Medications Medication Instructions Recorded Confirmed insulin detemir U-100 100 unit/mL 10 unit subcut 11/19/21 (3 mL) subcutaneous pen (Levemir FlexTouch U-100 Insulin) Allergies Allergy/AdvReac Type Severity Reaction Status Date / Time No Known Allergies Allergy Verified 06/04/22 18:00 Review of Systems Review of Systems: Gen: Denies fevers or chills Eyes: Denies eye pain or visual change ENT: Denies congestion Respiratory: Reports cough CV: Denies chest pain or palpitations GI: Denies abdominal pain nausea, emesis or diarrhea : denies burning, urgency, frequency or hematuria Musculoskeletal: Denies back pain or muscle pain Neuro: Denies numbness, tingling, weakness or focal weakness Skin: Denies rash Except as documented, all other systems reviewed and negative PMFSH Past Medical History Medical History CVA (cerebral vascular accident) Diabetes Surgical History Surgical History No history of previous surgery Social History Social History Smoking status: Unknown if ever smoked Exam Narrative: APPEARANCE: Well appearing, no pain in distress, well-nourished. Head: Normocephalic and atraumatic. EYES: PERRLA/EOMI, conjunctivae clear NOSE: No nasal drainage EARS: External ear normal in appearance THROAT: Oropharynx is clear. Mucous membranes are moist. NECK: Supple. No adenopathy, no masses. RESPIRATORY: Dry cough present throughout exam. Airway patent, respirations nonlabored. Clear to auscultation bilaterally, no rales, rhonchi, wheezing. CARDIOVASCULAR: Regular rate and rhythm without murmurs, rubs, or gallops. ABDOMINAL: Normoactive bowel sounds. Soft, nontender, nondistended. No rebound tenderness or guarding. MUSCULOSKELETAL: Extremities are warm and well-perfused. Moves all extremities well. No edema. NEURO: Normal speech. No focal neurologic deficits. SKIN: Skin is warm and dry. No rashes. PSYCHIATRIC: Normal affect/mood. Course Vital Signs Vital signs: Vital Signs Temperature 97.7 F 06/04/22 16:26 Pulse Rate 71 06/04/22 16:26 Respiratory Rate 16 06/04/22 16:26 Blood Pressure 137/74 06/04/22 16:26 Pulse Oximetry 98 06/04/22 16:26 Oxygen Delivery Room Air 06/04/22 16:26 Temperature 97.7 F 06/04/22 16:26 Pulse Rate 71 06/04/22 16:26 Respiratory Rate 16 06/04/22 16:26 Blood Pressure 137/74 06/04/22 16:26 Pulse Oximetry 98 06/04/22 16:26 Oxygen Delivery Room Air 06/04/22 17:57 MDM - URI/Sore Throat MDM Narrative Medical decision making narrative: Patient is a 72-year-old female here with her family for evaluation of dry cough for the past week and a half. She is nontoxic in appearance and has normal vital signs. Her heart and lungs are clear to auscultation. No evidence of fluid overload on exam. Viral swabs are normal. Chest x-ray is clear. Likely viral URI. Patient will be discharged home with supportive measures. Discussed return precautions and she voiced understanding. Lab Data Labs: Lab Results 06/04/22 Range/Units 17:56 Infl
[2022-06-04 18:42] LABS: Influenza A QL RT-PCR Negative (Negative); Influenza B QL RT-PCR Negative (Negative); SARS-CoV-2 RNA PCR Negative
[2022-06-04] MEDS: BENZONATATE 100 MG CAPSULE PO (19:04)
== END 2022-06-04 19:13 | disposition home or self-care (01) ==
PROVIDERS: Emergency Provider Physician Assistant
DX: J06.9 Acute upper respiratory infection, unspecified (principal); Z20.822 Contact with and (suspected) exposure to COVID-19; E11.9 Type 2 diabetes mellitus without complications; Z86.73 Personal history of transient ischemic attack (TIA), and cerebral infarction without residual deficits; Z79.84 Long term (current) use of oral hypoglycemic drugs
CPT/HCPCS: 71046; 87636; 99283; A9270

== ENCOUNTER 2022-06-28 17:27 | Emergency (ER) | payer MEDICAID, SELFPAY ==
--- NOTE | ~2022-06-28 | XR_ITS ---
EXAMINATION: XR ribs RT 2V w CXR 2V DATE: 06/28/2022 18:43 INDICATION: Right chest pain. Fall. TECHNIQUE: Frontal and lateral views of the chest and 2 views on 3 radiographs of the right ribs were obtained. COMPARISON: Chest 2 views 06/04/2022, CT abdomen and pelvis 03/22/2022 FINDINGS: CHEST TWO VIEWS: Calcified bilateral lung nodules are consistent with old granulomatous disease. No p leural effusion or pneumothorax. The heart size is normal. There is an old healed fracture of right c lavicle. There are chronic compression fractures of L1 on L2. RIGHT RIBS: There are old healed fractures of right fifth and sixth ribs. IMPRESSION: 1. No acute rib fracture. Reviewed, dictated and finalized at location A. IMPRESSION: 1. No acute rib fracture.
[2022-06-28 17:30] VITALS: BP 143/94; PULSE 109; RESP 22; TEMP 36.4; O2SAT 100
--- NOTE | 2022-06-28 17:33 | ECG_ITS ---
Measurements Intervals [place] Rate: 104 P: 5 MN: 136 QRS: -83 QRSD: 83 T: 30 QT: 332 QTc: 437 Interpretive Statements SINUS TACHYCARDIA LEFT ANTERIOR FASCICULAR BLOCK CONSIDER LATERAL INFARCT, AGE INDETERMINATE BASELINE ARTIFACT- I, III ABNORMAL ECG COMPARED TO ECG 03/22/2022 13:43:04 SINUS TACHYCARDIA NOW PRESENT Electronically Signed On 06-28-2022 20:26:56 CDT by Doroteo Dumont D.O.
--- NOTE | 2022-06-28 17:48 | ED.FALL ---
HPI - Fall General Chief Complaint: Fall Stated Complaint: ab pain after fall Time Seen by Provider: 06/28/22 17:41 Source: patient and family Mode of arrival: ambulatory Limitations: language barrier History of Present Illness HPI Narrative: Patient is a 72 y/o female who presents to the ED with c/o R rib pain. Patient speaks in some form of a Setswana dialect.? Family at bedside assisted in translation.? I did offer to utilize [employer] telegraph repeater mechanic, family refused and felt comfortable translating. Patient reportedly slipped and fell in the grass on Thursday. She denied having any prodromal sx's prior to the fall, did not hit her head or lose consciousness. She landed on her R side. She c/o pain to her R rib cage, worse with taking deep breaths and movement. Denies significant pain at rest. Denies abdominal pain, nausea, vomiting, fevers, shortness of breath, chest pain otherwise. Related Data Home Medications Medication Instructions Recorded Confirmed insulin detemir U-100 100 unit/mL 10 unit subcut 11/19/21 (3 mL) subcutaneous pen (Levemir FlexTouch U-100 Insulin) Allergies Allergy/AdvReac Type Severity Reaction Status Date / Time No Known Allergies Allergy Verified 06/04/22 18:00 Review of Systems Review of Systems: CONSTITUTIONAL: Denies fever, chills, or sweats. CARDIOVASCULAR: See HPI. RESPIRATORY: See HPI. GASTROINTESTINAL: Denies abdominal pain, nausea, vomiting. MUSCULOSKELETAL: See HPI. NEUROLOGIC: Denies HI, LOC, dizziness, headache, numbness, or weakness. All systems reviewed & are unremarkable except as noted in HPI and below PMFSH Past Medical History Medical History AAA (abdominal aortic aneurysm) CVA (cerebral vascular accident) Diabetes Surgical History Surgical History No history of previous surgery Social History Social History Smoking status: Unknown if ever smoked Exam Narrative: GENERAL: Small stature, well-nourished, non-toxic, in no acute distress. HEAD: Normocephalic, atraumatic. NECK: Supple. No adenopathy, no masses. RESPIRATORY: Airway patent, respirations nonlabored. Clear to auscultation bilaterally, no rales, rhonchi, wheezing. Mild cessation of deep breaths d/t discomfort. CARDIOVASCULAR: Regular rate and rhythm without murmurs, rubs, or gallops. Peripheral pulses 2+ and equal bilaterally. ABDOMINAL: Soft, no tenderness throughout upper abdomen, nondistended, no hepatosplenomegaly. Normoactive BS. MUSCULOSKELETAL: Moves all extremities. Strength/ROM intact without gross deformities. TTP along R anterior/lateral chest wall/rib cage, reproducing pain. SKIN: Warm, dry, normal color. No rashes. NEURO: Alert. Speech clear. Cranial nerves II-XII grossly intact. Steady gait. No ataxic movements. PSYCHIATRIC: Appropriate mood and affect. Normal interaction. Course Vital Signs Vital signs: Vital Signs Temperature 97.6 F 06/28/22 17:30 Pulse Rate 109 H 06/28/22 17:30 Respiratory Rate 22 H 06/28/22 17:30 Blood Pressure 143/94 H 06/28/22 17:30 Pulse Oximetry 100 06/28/22 17:30 Oxygen Delivery Room Air 06/28/22 17:30 Temperature 97.6 F 06/28/22 17:30 Pulse Rate 86 06/28/22 19:00 Respiratory Rate 18 06/28/22 19:00 Blood Pressure 116/68 06/28/22 19:00 Pulse Oximetry 96 06/28/22 19:00 Oxygen Delivery Room Air 06/28/22 17:30 MDM - Fall MDM Narrative Medical decision making narrative: Patient presented to ED s/p fall 3 days ago, pain to R ribcage. No other injuries. Patient mildly tachycardic and tachypneic upon arrival, however no acute distress upon my evaluation. No signs of respiratory compromise. Pain pleuritic and with movement. Oxygen 100% on room air. Patient with focal tenderness over right anterior lateral chest wall. EKG without is
[2022-06-28] MEDS: ACETAMINOPHEN 500 MG TABLET 1000 MG PO (18:44)
[2022-06-28 19:00] VITALS: BP 116/68; PULSE 86; RESP 18; O2SAT 96
== END 2022-06-28 20:03 | disposition home or self-care (01) ==
PROVIDERS: Emergency Provider Physician Assistant
DX: S20.211A Contusion of right front wall of thorax, initial encounter (principal); E11.9 Type 2 diabetes mellitus without complications; Z86.73 Personal history of transient ischemic attack (TIA), and cerebral infarction without residual deficits; R00.0 Tachycardia, unspecified; R94.31 Abnormal electrocardiogram [ECG] [EKG]; I44.4 Left anterior fascicular block; Z79.4 Long term (current) use of insulin; Z79.84 Long term (current) use of oral hypoglycemic drugs; W01.0XXA Fall on same level from slipping, tripping and stumbling without subsequent striking against object, initial encounter
CPT/HCPCS: 71046; 71100; 93005; 99283; A9270

== ENCOUNTER 2023-01-23 08:55 | Emergency (ER) | payer MEDICAID, SELFPAY ==
--- NOTE | ~2023-01-23 | CT_ITS ---
EXAMINATION: CTA chest abdomen pelvis DATE: 01/23/2023 11:54 INDICATION: Abdominal pain. Back pain. TECHNIQUE: Computed tomographic angiography (CTA) of the chest, abdomen, and pelvis was performed wit h 100 mL Omnipaque-350 intravenous contrast. Automated exposure control and iterative reconstruction technique were employed. The dose-length product was 296.93 mGy-cm. Maximum intensity projection 3D-r econstructions of the aorta and other arteries were constructed by the technologist on a separate wor kstation. COMPARISON: CT abdomen and pelvis 03/22/2022, 11/19/21 FINDINGS: CHEST CTA: The lungs demonstrate mild atelectasis. There is smooth septal thickening in the lungs with groundgla ss opacities, consistent mild pulmonary edema. A calcified right lung nodule and calcified right gurmeet r lymph nodes are consistent with old granulomatous disease. There are nodules in the thyroid measuri ng up to 1.8 cm . Cardiomegaly is noted. There is ectasia of ascending aorta measuring 4.7 cm. Aortic atherosclerosis is noted. There is no pulmonary embolus. There is mild thoracic spondylosis. ABDOMEN AND PELVIS CTA: There is a chronic 6 mm arterially hyperenhancing mass in segment IVb of the liver, likely benign. Th e gallbladder, spleen, pancreas, and adrenal glands are normal. There is cortical thinning of the kid neys. There are no dilated loops of bowel. The appendix is not visualized. There are no pathologicall y enlarged lymph nodes. There is no free intraperitoneal fluid. Aortic atherosclerosis is noted. Ther e is moderate stenosis of celiac axis and mild stenosis of superior mesenteric artery. There is no si gnificant stenosis of the renal arteries or inferior mesenteric artery. There are no pathologically e nlarged lymph nodes. There is no free intraperitoneal fluid. There is a chronic burst fracture of L1. There is a chronic compression fracture of L2. There is mild lumbar spondylosis. IMPRESSION: 1. Ectasia of ascending aorta measuring 4.7 cm. 2. Mild pulmonary edema. 3. Multinodular goiter. Consider thyroid ultrasound for risk stratification. Reviewed, dictated and finalized at location A. NE CHRONOMETER ASSEMBLER
[2023-01-23 09:00] VITALS: BP 184/80; PULSE 70; RESP 18; TEMP 36.7; O2SAT 100
--- NOTE | 2023-01-23 09:09 | ECG_ITS ---
Measurements Intervals [place] Rate: 63 P: 5 MD: 167 QRS: -47 QRSD: 80 T: -3 QT: 412 QTc: 422 Interpretive Statements SINUS RHYTHM LEFT AXIS DEVIATION [QRS AXIS < -30] POSSIBLE RIGHT VENTRICULAR CONDUCTION DELAY [RSR (QR) IN V1/V2] ABNORMAL ECG COMPARED TO ECG 06/28/2022 17:37:01 SMALL INFERIOR R-WAVES ARE NOW PRESENT/LESS SUGGESTIVE OF PREVIOUS INFARCTION Electronically Signed On 01-23-2023 13:29:11 HIDE COOKING OPERATOR by Cb Márquez M.D.
[2023-01-23] MEDS: ACETAMINOPHEN 500 MG TABLET 1000 MG PO (09:27)
[2023-01-23 09:49] LABS: Basophils Percent Auto 0.4 % (0.2-1.2); Eosinophils Absolute Auto 0.1 K/mm3 (0-0.3); Hematocrit 44.1 % (37.0-47.0); Hemoglobin 14.4 g/dL (12.0-15.0); Immature Granulocyte Absolute 0.02 K/mm3 (0.00-0.031); Immature Granulocyte Percent A 0.3 % (0-0.5); Lymphocytes Percent Auto 23.8 % (18.3-44.2); Mean Corpuscular HGB Conc 32.7 g/dl (32-36); Mean Corpuscular Hemoglobin 30.2 pg (26-34); Mean Corpuscular Volume 92.5 fl (80-100); Monocytes Absolute Auto 0.4 K/mm3 (0.1-0.6); Monocytes Percent Auto 5.4 % (2.6-8.5); Neutrophils Absolute Auto 5.5 K/mm3 (1.3-6.7); Neutrophils Percent Auto 69.1 % (45.5-73.1); Platelet Count Result 218 k/mm3 (150-375); Red Blood Count 4.77 M/mm3 (4.2-5.4); Red Cell Distribution Width 12.6 % (11.5-14.5)
[2023-01-23 09:51] LABS: Appearance Urine Clear (Clear); Bilirubin Urine Negative (Negative); Blood Urine Negative (Negative); Color Urine Yellow (Yellow); Glucose Urine UA 3+ mg/dL (Negative); Ketones Urine Negative (Negative); Leukocyte Esterase Ur Negative LEU/UL (Negative); Nitrate Urine Negative (Negative); Protein Urine Negative (Negative); Specific Grav Ur 1.008 (1.001-1.035); Urobilinogen Urine 0.2 mg/dL (<2.0)
[2023-01-23 09:56] LABS: Add Urine Microscopic? NO
[2023-01-23 09:58] LABS: Alanine Aminotransferase 19 U/L (6-35); Albumin Level 4.6 g/dL (3.5-5.1); Alkaline Phosphatase 93 U/L (38-126); Anion Gap 11 mmol/L (8-16); Aspartate Amino Transferase 26 U/L (14-36); Bilirubin,Total 0.7 mg/dL (0.2-1.3); Blood Urea Nitrogen 9 mg/dL (7-17); Carbon Dioxide 25 mmol/L (22-30); Chloride 104 mmol/L (98-107); Estimated Glomerular Filt Rate > 60; Glucose 129 mg/dL (65-110); Lipase 101 U/L (23-300); Sodium 140 mmol/L (137-145)
[2023-01-23 10:10] LABS: Troponin I < 0.012 ng/mL (0.000-0.034)
--- NOTE | 2023-01-23 10:10 | ED.ABDPAIN ---
HPI - Abdominal Pain General Chief Complaint: Abdominal Pain Stated Complaint: ABD Pain, Back Pain Time Seen by Provider: 01/23/23 09:02 History of Present Illness HPI narrative: 72F h/o DM, vertigo, presents here with several days of abdominal and back pain, mostly R flank. Hasn't had symptoms like this before, no chest pain or difficulty breathing, no nausea, vomiting, or diarrhea. She does have some vertigo which she has had before, no focal numbness or weakness or difficulty speaking. Related Data Home Medications Medication Instructions Recorded Confirmed insulin detemir U-100 100 unit/mL 10 unit subcut 11/19/21 (3 mL) subcutaneous pen (Levemir FlexTouch U-100 Insulin) Allergies Allergy/AdvReac Type Severity Reaction Status Date / Time No Known Allergies Allergy Verified 06/04/22 18:00 Review of Systems Review of Systems: All systems reviewed & are unremarkable except as noted in HPI and below PMFSH Past Medical History Medical History AAA (abdominal aortic aneurysm) CVA (cerebral vascular accident) Diabetes Surgical History Surgical History No history of previous surgery Social History Social History Smoking status: Unknown if ever smoked Exam Narrative: EXAMINATION OF ORGAN SYSTEMS/BODY AREAS: Constitutional: Vital signs per nursing GENERAL: Appears slightly uncomfortable in the bed HEAD: Normal with no signs of head trauma. EYES: EOMI, conjunctiva normal ENT: Hearing grossly intact LUNGS: Nonlabored breathing. HEART: [Regular rate and rhythm], normal radial pulses bilaterally ABD: [Soft], [nontender to palpation] BACK: No focal tenderness to palpation EXT: Normal range of motion SKIN: [No rashes or lesions.] NEURO: [Alert and oriented x 3. No gross focal sensory or strength deficits.] Ambulating with steady gait. No facial asymmetry; speaking with clear speech. PSYCH: Normal affect Course Vital Signs Vital signs: Vital Signs Temperature 98.0 F 01/23/23 09:00 Pulse Rate 70 01/23/23 09:00 Respiratory Rate 18 12/01/23 09:00 Blood Pressure 184/80 H 01/23/23 09:00 Pulse Oximetry 100 01/23/23 09:00 Oxygen Delivery Room Air 01/23/23 09:00 Temperature 98.0 F 01/23/23 09:00 Pulse Rate 70 01/23/23 09:00 Respiratory Rate 18 01/23/23 09:00 Blood Pressure 184/80 H 01/23/23 09:00 Pulse Oximetry 100 01/23/23 09:00 Oxygen Delivery Room Air 01/23/23 09:00 MDM - Abdominal Pain MDM Narrative Medical decision making narrative: Electronic medical record was reviewed. Patient presented to the ED with complaint of [abdominal and back pain last few days and some vertigo]. Vitals [were within acceptable limits]. Physical exam revealed well appearing patient, she is able to ambulate with steady gait, abdomen/back without obvious severe tenderness. Based on the patient's history and physical exam, my differential includes but is not limited to [gastritis, gastroenteritis, cholecystitis, pancreatitis, appendicitis, MSK, nephrolithiasis, UTI]. [IV access was established by nursing staff. Patient was given Tylenol]. CBC, BMP, lipase, LFTs, bilirubin and alk phos were obtained. No obvious abnormality. [Decision was made to obtain a CTA-chest/abdomen/pelvis to evaluate for acute abdominal process. Per radiology interpretation is unremarkable for acute intra-abdominal process, no signs of hydronephrosis, cholecystitis, appendicitis, aortic abnormality.] On re-eval, they are not complaining of any new abdominal pain. Repeat examination did not show any significant guarding or rebound. No new tenderness. At this time I do not feel there is any further emergent treatment to be provided. The patient was given strict return precautions, if they are to develop any worsening abdomina
== END 2023-01-23 13:17 | disposition home or self-care (01) ==
PROVIDERS: Emergency Provider Emergency Medicine
DX: R10.9 Unspecified abdominal pain (principal); R42 Dizziness and giddiness; M54.9 Dorsalgia, unspecified; E11.9 Type 2 diabetes mellitus without complications; I77.819 Aortic ectasia, unspecified site; Z86.73 Personal history of transient ischemic attack (TIA), and cerebral infarction without residual deficits; Z79.4 Long term (current) use of insulin; Z79.84 Long term (current) use of oral hypoglycemic drugs; J81.1 Chronic pulmonary edema; E04.2 Nontoxic multinodular goiter; R94.31 Abnormal electrocardiogram [ECG] [EKG]
CPT/HCPCS: 36415; 71275; 74174; 80053; 81003; 83690; 84484; 85025; 93005; 99284; A9270; Q9967

== ENCOUNTER 2023-01-27 06:33 | Emergency (ER) | payer MEDICAID, SELFPAY ==
[2023-01-27] VITALS (10 sets, daily range): BP systolic 100–165; BP diastolic 68–90; PULSE 66–99; RESP 16–20; TEMP 36.6–37.1; O2SAT 94–99
--- NOTE | ~2023-01-27 | CT_ITS ---
EXAMINATION: CTA chest PE abdomen pel DATE: 01/27/2023 09:37 SOCIOLOGY PROFESSOR INDICATION: Epigastric pain. TECHNIQUE: Computed tomographic angiography (CTA) of the chest, abdomen, and pelvis was performed wit h 100 mL Omnipaque-350 intravenous contrast. The dose-length product was 344.37 mGy-cm. Maximum inten sity projection 3D-reconstructions of the aorta and other arteries were constructed by the [employer] st on a separate workstation. Automated exposure control and iterative reconstruction technique were employed. COMPARISON: None. FINDINGS: CHEST CTA: Study is technically adequate without evidence for pulmonary embolism. There is a fusiform ascending thoracic aortic aneurysm measuring 4.5 cm. No evidence for aortic dissection. No significant pleural or pericardial effusion. No thoracic lymphadenopathy. Heterogeneous appearance to the thyroid gland c ontaining coarse calcifications. Consider correlation with thyroid ultrasound. Enlarged central pulmo nary arteries consistent with pulmonary arterial hypertension. There is dependent atelectasis. Calcif ied granuloma right upper lobe. No focal pneumonia, suspicious pulmonary nodule or pneumothorax. No e ndobronchial lesions. ABDOMEN AND PELVIS CTA: The liver, spleen, pancreas, adrenal glands and kidneys are unremarkable. No hydronephrosis. Gallblad marsha is present. The celiac axis, SMA, renal arteries and WIL are patent. No lymphadenopathy. Nonobstr uctive bowel gas pattern. No free air or free fluid. IMPRESSION: 1. Fusiform ascending thoracic aortic aneurysm measuring 4.5 cm. No evidence for aortic dissection or pulmonary embolism. Reviewed, dictated and finalized at location D. OLOGY PROFESSOR IMPRESSION: 1. Fusiform ascending thoracic aortic aneurysm measuring 4.5 cm. No evidence fo r aortic dissection or pulmonary embolism.
--- NOTE | ~2023-01-27 | XR_ITS ---
Clinical Indication: Chest pain PA and lateral views of the chest: Comparison: 06/28/2022 Findings: The lungs are clear, without evidence of focal consolidation or pleural effusion. Cardiome diastinal silhouette is within normal limits. Stable compression fractures at the lumbar spine. Impression: Clear lungs. Stable compression fractures of the lumbar spine. Reviewed, dictated and finalized at location . SPECIALIST Impression: Clear lungs. Stable compression fractures of the lumbar spine.
--- NOTE | 2023-01-27 06:40 | ECG_ITS ---
Measurements Intervals [place] Rate: 71 P: 25 IA: 148 QRS: -61 QRSD: 81 T: 50 QT: 344 QTc: 375 Interpretive Statements SINUS RHYTHM LEFT AXIS DEVIATION [QRS AXIS < -30] PATTERN CONSISTENT WITH PULMONARY DISEASE NONSPECIFIC T-WAVE ABNORMALITY COMPARED TO ECG 01/23/2023 09:33:22 T-WAVE ABNORMALITY NOW PRESENT Electronically Signed On 01-27-2023 13:29:27 CLINICAL SERVICES CONSULTANT by Ofelia Meza M.D.
--- NOTE | 2023-01-27 06:49 | PC.NURSE ---
Pt to xray at this time.
[2023-01-27] MEDS: ASPIRIN 81 MG CHEWABLE TABLET 324 MG PO (06:59)
--- NOTE | 2023-01-27 07:10 | PC.NURSE ---
Report given to ROSANA Zhong at this time.
[2023-01-27 07:25] LABS: Basophils Percent Auto 0.5 % (0.2-1.2); Eosinophils Absolute Auto 0.3 K/mm3 (0-0.3); Eosinophils Percent Auto 3.3 % (0-4.4); Hematocrit 46.9 % (37.0-47.0); Hemoglobin 15.4 g/dL (12.0-15.0); Immature Granulocyte Absolute 0.02 K/mm3 (0.00-0.031); Immature Granulocyte Percent A 0.3 % (0-0.5); Lymphocytes Absolute Auto 3.17 K/mm3 (0.9-3.2); Lymphocytes Percent Auto 41.7 % (18.3-44.2); Mean Corpuscular HGB Conc 32.8 g/dl (32-36); Mean Corpuscular Hemoglobin 30.9 pg (26-34); Mean Platelet Volume 10.3 fl (7.4-10.4); Monocytes Absolute Auto 0.7 K/mm3 (0.1-0.6); Monocytes Percent Auto 8.7 % (2.6-8.5); Neutrophils Absolute Auto 3.5 K/mm3 (1.3-6.7); Neutrophils Percent Auto 45.5 % (45.5-73.1); Platelet Count Result 223 k/mm3 (150-375); Red Blood Count 4.99 M/mm3 (4.2-5.4); Red Cell Distribution Width 12.7 % (11.5-14.5); White Blood Count 7.6 K/mm3 (4.5-10.0)
[2023-01-27 07:44] LABS: Prothrombin Time 13.1 Seconds (11.1-14.7)
[2023-01-27 07:53] LABS: Alanine Aminotransferase 19 U/L (6-35); Albumin Level 4.8 g/dL (3.5-5.1); Alkaline Phosphatase 77 U/L (38-126); Anion Gap 9 mmol/L (8-16); Aspartate Amino Transferase 41 U/L (14-36); Bilirubin,Total 1.1 mg/dL (0.2-1.3); Blood Urea Nitrogen 16 mg/dL (7-17); Calcium 8.9 mg/dL (8.4-10.2); Carbon Dioxide 27 mmol/L (22-30); Chloride 103 mmol/L (98-107); Estimated Glomerular Filt Rate > 60; Glucose 83 mg/dL (65-110); Lipase 108 U/L (23-300); Potassium 5.2 mmol/L (3.4-5.0); Sodium 139 mmol/L (137-145); Troponin I < 0.012 ng/mL (0.000-0.034)
[2023-01-27 07:59] LABS: Partial Thromboplastin Time 25.7 SECONDS (22.3-36.8)
[2023-01-27 08:01] LABS: D Dimer 0.33 ug/mL (<0.48)
--- NOTE | 2023-01-27 08:01 | ED.GENADULT ---
HPI - General Adult General Chief complaint: Chest Pain Stated complaint: chest pain, sob, nauseas Time Seen by Provider: 01/27/23 06:55 History of Present Illness HPI narrative: 72-year-old female presenting to the emergency department for evaluation persistent epigastric pain. Patient was evaluated in the emergency department just a few days ago with identical symptoms. Patient is from [place] and speaks a rare dialect that is not used the drill press operator helper software. Patient's grandson is translating for her. Grandson states that the patient was seen in the ED few days ago the patient did feel improved for 1 day but then began having worsening symptoms yesterday and this morning. Refers to worsening epigastric pain. Related Data Home Medications Medication Instructions Recorded Confirmed insulin detemir U-100 100 unit/mL 10 unit subcut 11/19/21 (3 mL) subcutaneous pen (Levemir FlexTouch U-100 Insulin) Allergies Allergy/AdvReac Type Severity Reaction Status Date / Time No Known Allergies Allergy Verified 01/27/23 06:45 Review of Systems Review of Systems: All systems reviewed & are unremarkable except as noted in HPI and below PMFSH Past Medical History Medical History AAA (abdominal aortic aneurysm) CVA (cerebral vascular accident) Diabetes Surgical History Surgical History No history of previous surgery Social History Social History Smoking status: Unknown if ever smoked Exam Narrative: APPEARANCE: Well appearing, no pain, no distress, well-nourished. HEAD: normocephalic, atraumatic. EYES: PERRLA/EOMI, conjunctivae clear. NOSE: Normal no drainage EARS:TMS clear with good light reflex. THROAT: Pharynx clear, no exudate. NECK: Supple. No adenopathy, no masses. RESPIRATORY: Airway patent, respirations nonlabored. Clear to auscultation bilaterally, no rales, rhonchi, wheezing. CARDIOVASCULAR: Regular rate and rhythm without murmurs rubs or gallops. ABDOMINAL: Soft, Epigastric tenderness to palpation MUSCULOSKELETAL: Moves all extremities. Strength/ROM intact, No edema, No calf tenderness. NEURO: Alert. Cranial nerves II through XII intact. Good gait. Good coordination SKIN: Warm, dry. Normal Color Course Course Emergency Course: 72-year-old female present to the emergency department for evaluation of epigastric pain. Patient was afebrile with no leukocytosis and a stable hemoglobin. Patient was hyperkalemic but was treated with IV fluids. Patient had negative serial troponins. CTA showed a fusiform aortic aneurysm with no evidence of rupture or Pulmonary embolism. Patient and family were updated on the results of the workup and they were encouraged to have close follow-up with the patient's primary care physician. Vital Signs Vital signs: Vital Signs Temperature 98.7 F 01/27/23 06:39 Pulse Rate 72 01/27/23 06:39 Respiratory Rate 18 01/27/23 06:39 Blood Pressure 159/83 H 01/27/23 06:39 Pulse Oximetry 94 01/27/23 06:39 Oxygen Delivery Room Air 01/27/23 06:39 Temperature 97.9 F 01/27/23 08:12 Pulse Rate 74 01/27/23 11:07 Respiratory Rate 16 01/27/23 11:07 Blood Pressure 100/68 01/27/23 11:07 Pulse Oximetry 98 01/27/23 11:07 Oxygen Delivery Room Air 01/27/23 08:02 Medical Decision Making Differential Diagnosis Differential Diagnosis: gastritis, colitis, diverticulitis, ACS, pulmonary embolism Vital Signs Vital Signs: Vital Signs Temperature 98.7 F 01/27/23 06:39 Pulse Rate 72 01/27/23 06:39 Respiratory Rate 18 01/27/23 06:39 Blood Pressure 159/83 H 01/27/23 06:39 Pulse Oximetry 94 01/27/23 06:39 Oxygen Delivery Room Air 01/27/23 06:39 Temperature 97.9 F 01/27/23 08:12 Pulse Rate 74 01/27/23 11:07 Respiratory Rate
[2023-01-27] MEDS: SODIUM CHLORIDE 0.9% IV 500 ML 999 ML IV CONT (08:09)
[2023-01-27] MEDS: fentaNYL CITRATE INJ (*CRX) 100 MCG/2 ML VIAL 50 MCG IV PUSH (08:09)
[2023-01-27 10:14] LABS: Troponin I < 0.012 ng/mL (0.000-0.034)
== END 2023-01-27 11:17 | disposition home or self-care (01) ==
PROVIDERS: Emergency Medicine; Emergency Provider Emergency Medicine
DX: R10.13 Epigastric pain (principal); E11.9 Type 2 diabetes mellitus without complications; Z79.4 Long term (current) use of insulin; Z86.73 Personal history of transient ischemic attack (TIA), and cerebral infarction without residual deficits
CPT/HCPCS: 36415; 71046; 71275; 74177; 80053; 83690; 84484; 85025; 85380; 85610; 85730; 93005; 96361; 96374; 99284; A9270; J3010; J7040; Q9967

== ENCOUNTER 2023-10-12 06:21 | Emergency (ER) | payer MEDICAID, SELFPAY ==
[2023-10-12] VITALS (19 sets, daily range): BP systolic 103–142; BP diastolic 68–86; PULSE 64–76; RESP 12–24; TEMP 36.4–36.7; O2SAT 94–100
--- NOTE | ~2023-10-12 | XR_ITS ---
EXAMINATION: XR chest 1V portable DATE: 10/12/2023 06:41 INDICATION: Chest pain. TECHNIQUE: A single frontal view of the chest was obtained. COMPARISON: Chest 2 views 01/27/2023, chest CT 01/27/2023 FINDINGS: There is no pneumonia, pleural effusion, or pneumothorax. Cardiomegaly is noted. There is e ctasia of ascending aorta. IMPRESSION: 1. Cardiomegaly. 2. Ectasia of ascending aorta. Reviewed, dictated and finalized at location A.
--- NOTE | ~2023-10-12 | CT_ITS ---
EXAMINATION: CTA chest DATE: 10/12/2023 09:26 INDICATION: Aortic aneurysm. TECHNIQUE: Computed tomographic angiography (CTA) of the chest was performed with 100 mL Omnipaque-35 0 intravenous contrast. Automated exposure control and iterative reconstruction technique were employ ed. The dose-length product was 173.15 mGy-cm. Maximum intensity projection 3D-reconstructions of the aorta and other arteries were constructed by the technologist on a separate workstation. COMPARISON: Chest CT 01/27/2023 FINDINGS: The lungs demonstrate mild atelectasis. A calcified right lung nodule and calcified right h ilar lymph nodes are consistent with old granulomatous disease. No pleural effusion. Cardiomegaly is noted. No pericardial effusion. There are calcifications of the aortic valve. The aorta measures 3.7 cm at the sinuses of Valsalva, 3.9 cm at the sinotubular junction, 4.6 cm in the mid ascending aorta, 2.7 cm at the aortic isthmus, and 2.7 cm in the mid descending aorta. The central pulmonary is enlar ged. There is no pulmonary embolus. There is mild thoracic spondylosis. There are chronic fractures o f L1 and L2 vertebral bodies. There is mild chronic height loss of multiple cervical vertebral bodies . IMPRESSION: 1. Ectasia of ascending aorta measuring 4.6 cm, stable from 01/27/2023. Reviewed, dictated and finalized at location A.
--- NOTE | 2023-10-12 06:22 | ECG_ITS ---
Test Date: 2023-10-12 06:31:41 Measurements Intervals [place] Rate: 74 P: 30 OK: 178 QRS: -58 QRSD: 78 T: 31 QT: 391 QTc: 435 Interpretive Statements SINUS RHYTHM PATTERN CONSISTENT WITH PULMONARY DISEASE LEFT ANTERIOR FASCICULAR BLOCK [QRS AXIS <= -45, QR IN I, RS IN II] ABNORMAL ECG Electronically Signed On 10-12-2023 11:00:52 CDT by Jack Ortega M.D.
[2023-10-12] MEDS: ASPIRIN 81 MG CHEWABLE TABLET 324 MG PO (06:38)
[2023-10-12 06:53] LABS: Basophils Absolute Auto 0.1 K/mm3 (0.0-0.1); Basophils Percent Auto 0.7 % (0.2-1.2); Eosinophils Absolute Auto 0.2 K/mm3 (0-0.3); Eosinophils Percent Auto 2.8 % (0-4.4); Hematocrit 44.4 % (37.0-47.0); Hemoglobin 14.7 g/dL (12.0-15.0); Immature Granulocyte Absolute 0.02 K/mm3 (0.00-0.031); Immature Granulocyte Percent A 0.2 % (0-0.5); Lymphocytes Absolute Auto 2.27 K/mm3 (0.9-3.2); Lymphocytes Percent Auto 27.5 % (18.3-44.2); Mean Corpuscular HGB Conc 33.1 g/dl (32-36); Mean Corpuscular Hemoglobin 31.4 pg (26-34); Mean Corpuscular Volume 94.9 fl (80-100); Mean Platelet Volume 10.4 fl (7.4-10.4); Monocytes Absolute Auto 0.8 K/mm3 (0.1-0.6); Monocytes Percent Auto 9.1 % (2.6-8.5); Neutrophils Absolute Auto 4.9 K/mm3 (1.3-6.7); Neutrophils Percent Auto 59.7 % (45.5-73.1); Platelet Count Result 213 k/mm3 (150-375); Red Blood Count 4.68 M/mm3 (4.2-5.4); Red Cell Distribution Width 12.3 % (11.5-14.5); White Blood Count 8.3 K/mm3 (4.5-10.0)
[2023-10-12 07:02] LABS: Alanine Aminotransferase 24 U/L (6-35); Albumin Level 4.6 g/dL (3.5-5.1); Alkaline Phosphatase 106 U/L (38-126); Anion Gap 12 mmol/L (4-12); Aspartate Amino Transferase 28 U/L (14-36); Bilirubin,Total 0.6 mg/dL (0.2-1.3); Blood Urea Nitrogen 13 mg/dL (7-17); Calcium 8.4 mg/dL (8.4-10.2); Carbon Dioxide 25 mmol/L (22-30); Chloride 103 mmol/L (98-107); Estimated Glomerular Filt Rate > 60; Glucose 141 mg/dL (65-110); Lipase 115 U/L (23-300); Sodium 140 mmol/L (137-145)
[2023-10-12 07:10] LABS: Prothrombin Time 13.3 Seconds (11.1-14.7)
[2023-10-12 07:11] LABS: Partial Thromboplastin Time 24.9 Seconds (22.3-36.8)
[2023-10-12 07:13] LABS: Troponin I < 0.012 ng/mL (0.000-0.034)
--- NOTE | 2023-10-12 07:19 | ED.CHESTPAIN ---
HPI - Chest Pain General Chief Complaint: Chest Pain Stated Complaint: left chest pain Time Seen by Provider: 10/12/23 06:56 Source: patient and family Mode of arrival: ambulatory Limitations: language barrier (speaks [place], no language interpretation available; family serves as maths tutor) History of Present Illness HPI narrative: Patient presents with left-sided chest pain since yesterday. Family states that believe it is constant least this morning given the fact she continues to moan. Denies any trauma. They note that she a cough earlier when she was given a medication but this was new. Has not had any fevers to their knowledge. She denies any nausea, vomiting, or diaphoresis. States this has not happened before. She did see a consulting analyst in August but no clearly identifiable underlying cardiac issues. Denies any underlying respiratory conditions. Denies any edema, immobilization, travel, or recent surgery. No prior PE or DVT. No malignancy. Denies any hemoptysis. She is a diabetic but denies any hypertension. She is on a medication for her hyperlipidemia. Nonsmoker. No family history before the age of 65 of cardiac issues. No personal history of myocardial infarction, TIA, CVA. Related Data Home Medications Medication Instructions Recorded Confirmed insulin detemir U-100 100 unit/mL 10 unit subcut 11/19/21 (3 mL) subcutaneous pen (Levemir FlexTouch U-100 Insulin) Allergies Allergy/AdvReac Type Severity Reaction Status Date / Time No Known Allergies Allergy Verified 01/27/23 06:45 PMFSH Past Medical History Medical History AAA (abdominal aortic aneurysm) CVA (cerebral vascular accident) Diabetes Hyperlipidemia Surgical History Surgical History No history of previous surgery Social History Social History Additional smoking assessment comments: nonsmoker Exam Narrative: GENERAL: Well-appearing, well-nourished, in mild acute distress. HEAD: Normocephalic, atraumatic. EYES: Non injected, non icteric ENT: Nares clear, no rhinorrhea or epistaxis. NECK: Supple. CHEST: No respiratory distress. Lungs clear to auscultation bilaterally. Mild tenderness to palpation of the left lateral chest or patient is experiencing pain, slightly at the tail of Marsh of left breast HEART: Regular rate and rhythm. . ABDOMEN: Soft, nondistended. EXTREMITIES: Normal range of motion. No lower extremity edema. SKIN: Warm, dry, no rash. In particular no lesions on left side of chest or around breast where patient is having pain. NEURO: No focal deficits. Alert and oriented. PSYCH: Normal mood and affect. Course Vital Signs Vital signs: Vital Signs Temperature 97.6 F 10/12/23 06:26 Pulse Rate 73 10/12/23 06:26 Respiratory Rate 18 10/12/23 06:26 Pulse Oximetry 98 10/12/23 06:26 Oxygen Delivery Room Air 10/12/23 06:26 Temperature 98.1 F 10/12/23 07:19 Pulse Rate 73 10/12/23 09:01 Respiratory Rate 18 10/12/23 09:01 Blood Pressure 104/74 10/12/23 09:01 Pulse Oximetry 97 10/12/23 09:01 Oxygen Delivery Room Air 10/12/23 06:33 MDM - Chest Pain MDM Narrative Medical decision making narrative: Patient presents with left-sided chest pain, particularly left lateral. In the emergency department they are afebrile with vital signs within normal limits. Cannot apply PERC given age. Wells' Score for PE: Clinical S/S DVT (No 0, Yes +3): 0 PE #1 Dx OR equally likely (No 0, Yes +3): 0 HR >100 (No 0, Yes +1.5): 0 Immobiliazation at least 3 d OR surgery prev 4 wks (No 0, Yes +1.5): 0 Previous Dx DVT/PE (No 0, Yes +1.5): 0 Hemoptysis (No 0, Yes +1): 0 Malignancy w/ Tx within 6 mos or palliative (No 0, Yes +1): 0 Thus, low suspicion/low pretest probability but does describe pain as pleuritic so
[2023-10-12] MEDS: MORPHINE SULFATE (*CRX) 4 MG/ML INJ IV PUSH (07:37)
[2023-10-12 08:11] LABS: NT Pro B Type Natriuretic Pept 64 pg/mL (19.9-100)
[2023-10-12 08:23] LABS: Influenza A QL RT-PCR Negative (Negative); Influenza B QL RT-PCR Negative (Negative); RSV RNA, RT-PCR Negative (Negative); SARS-CoV-2 RNA PCR Negative (Negative)
[2023-10-12 08:25] LABS: D Dimer 0.36 ug/mL (<0.48)
== END 2023-10-12 10:37 | disposition home or self-care (01) ==
PROVIDERS: Emergency Medicine; Emergency Provider Student in an Organized Health Care Education/Training Program
DX: R07.89 Other chest pain (principal); I51.7 Cardiomegaly; I77.819 Aortic ectasia, unspecified site; E11.65 Type 2 diabetes mellitus with hyperglycemia; Z79.4 Long term (current) use of insulin; E78.5 Hyperlipidemia, unspecified
CPT/HCPCS: 36415; 71045; 71275; 80053; 83690; 83880; 84484; 85025; 85380; 85610; 85730; 87637; 93005; 96374; 99284; A9270; J2270; Q9967

== ENCOUNTER 2025-01-16 01:11 | Emergency (ER) | payer OTHER, SELFPAY ==
[2025-01-16] VITALS (23 sets, daily range): BP systolic 132–203; BP diastolic 66–93; PULSE 62–75; RESP 8–32; TEMP 36.6; O2SAT 82–99
--- NOTE | ~2025-01-16 | CT_ITS ---
EXAMINATION: CTA chest abdomen pelvis DATE: 01/16/2025 01:47 INDICATION: Chest pain. Aortic aneurysm. TECHNIQUE: Computed tomographic angiography (CTA) of the chest, abdomen, and pelvis was performed with 100 mL Omnipaque-350 intravenous contrast. Automated exposure control and iterative reconstruction technique were employed. The dose- length product was 235.74 mGy-cm. Maximum intensity projection 3D-r econstructions of the aorta and other arteries were constructed by the technologist on a separate workstation. COMPARISON: CTA chest 10/12/2023 FINDINGS: CHEST CTA: The lungs demonstrate mild atelectasis. A calcified right lung nodule and calcified right hilar lymph nodes are consistent with old granulomatous disease. No pleural effusion. There are nodules in the thyroid measuring up to 2.0 cm. Cardiomegaly is noted. The central pulmonary arteries are enlarged, consistent with pulmonary arterial hypertension. There is no pulmonary embolus. There is ectasia of ascending aorta measuring 4.9 cm. There are calcifications of the aortic valve. There is mild thoracic spondylosis. ABDOMEN AND PELVIS CTA: The liver, gallbladder, spleen, pancreas, adrenal glands, are normal. There is cortical thinning in the kidneys. There are no dilated loops of bowel. The appendix is not visualized. There are no pathologically enlarged lymph nodes. There is no free intraperitoneal fluid. There is no significant stenosis of celiac axis. There is moderate stenosis of superior mesenteric artery. There is moderate stenosis of a left renal artery. There is no significant stenosis of inferior mesenteric artery. There are chronic fractures of L1 and L2 vertebral bodies. There is mild lumbar spondylosis. IMPRESSION: 1. Ectasia of ascending aorta measuring 4.9 cm. 2. Moderate stenosis of a left renal artery. Reviewed, dictated and finalized at location E. L LAYER
--- NOTE | ~2025-01-16 | XR_ITS ---
Examination: XR chest 1V Clinical History: chest pain Comparison: 10/12/2023 Technique: Portable AP Findings: Unchanged cardiomegaly and mediastinal contours, with probable aneurysmal dilatation of ascending thoracic aorta. Lungs clear. No acute bony abnormality. IMPRESSION: 1. No acute cardiopulmonary findings given portable technique. Reviewed, dictated and finalized at location R. L TRIMMER
--- NOTE | 2025-01-16 01:15 | ECG_ITS ---
Test Date: 2025-01-16 01:22:09 Measurements Intervals [place] Rate: 66 P: 8 CA: 164 QRS: -50 QRSD: 96 T: 30 QT: 395 QTc: 416 Interpretive Statements SINUS RHYTHM LEFT ANTERIOR FASCICULAR BLOCK [QRS AXIS <= -45, QR IN I, RS IN II] ABNORMAL ECG Compared to ECG 10/12/2023 06:31:41 NO DIFFERENCE Electronically Signed On 01-16-2025 07:27:43 MARKET DEVELOPMENT ANALYST by Cb Márquez M.D.
--- NOTE | 2025-01-16 01:29 | ED.CHESTPAIN ---
HPI - Chest Pain General Chief Complaint: Chest Pain Stated Complaint: chest pain, shortness of breath Time Seen by Provider: 01/16/25 01:16 History of Present Illness HPI narrative: 44-year-old female with history of hypertension, insulin-dependent diabetes, known AAA. Patient speaks rare dialect of a language and no interpretive services are available except for family members providing collateral formation after talking with patient. Patient has been complaining of periumbilical pain going straight to her back and up to her chest that has been worsening throughout the evening and woke her up from sleep. No traumatic injuries. On the medical changes recently is that she ran out of insulin today. No fever, chills. Endorses high blood pressure that she takes metoprolol. Has a known AAA about 4.6 cm previously imaged before. Has not tried anything for pain and came straight to the ER. Related Data Home Medications ?Medication ?Instructions ?Recorded ?Confirmed ?Last Taken ?Type insulin detemir U-100 100 unit/mL 10 unit subcut 11/19/21 11/18/21 21:00 History (3 mL) subcutaneous pen (Levemir FlexTouch U-100 Insulin) Allergies Allergy/AdvReac Type Severity Reaction Status Date / Time No Known Allergies Allergy Verified 01/16/25 01:11 Review of Systems Review of Systems: As reviewed above in HPI [facility] Past Medical History Medical History Hyperlipidemia AAA (abdominal aortic aneurysm) Diabetes CVA (cerebral vascular accident) Surgical History Surgical History No history of previous surgery Social History Social History Additional smoking assessment comments: nonsmoker Exam Narrative: GENERAL: Uncomfortable and writhing around, answering questions. Awake and alert. HEAD: [Normocephalic, atraumatic.] EYES: [PERRLA and EOMI.] ENT: Nares clear, no rhinorrhea or epistaxis. Mucous membranes moist. NECK: Supple. CHEST: [Clear to auscultation. No respiratory distress.] HEART: [Regular rate and rhythm]. No murmur heard. [Normal peripheral pulses.] ABDOMEN: soft and nondistended, tender to palpation in the midline epigastrium, ex lap scar from prior appendectomy. EXTREMITIES: Normal range of motion. [No edema.] SKIN: Warm, dry, no rash. NEURO: [No focal deficits]. Alert and oriented [x3.] PSYCH: [Normal mood and affect.] Course Vital Signs Vital signs: Vital Signs Temperature 36.6 C 01/16/25 01:20 Pulse Rate 65 01/16/25 01:20 Respiratory Rate 16 01/16/25 01:20 Blood Pressure 203/93 H 01/16/25 01:20 Pulse Oximetry 99 01/16/25 01:20 Oxygen Delivery Room Air 01/16/25 01:20 Temperature 36.6 C 01/16/25 01:20 Pulse Rate 75 01/16/25 05:15 Respiratory Rate 28 H 01/16/25 05:15 Blood Pressure 134/66 01/16/25 05:01 Pulse Oximetry 95 01/16/25 05:15 Oxygen Delivery Room Air 01/16/25 01:20 MDM - Chest Pain MDM Narrative Medical decision making narrative: 44-year-old female with history of hypertension, insulin-dependent diabetes, known AAA. Patient speaks rare dialect of a language and no interpretive services are available except for family members providing collateral formation after talking with patient. Patient has been complaining of periumbilical pain going straight to her back and up to her chest that has been worsening throughout the evening and woke her up from sleep. No traumatic injuries. On the medical changes recently is that she ran out of insulin today. No fever, chills. Endorses high blood pressure that she takes metoprolol. Has a known AAA about 4.6 cm previously imaged before. Has not tried anything for pain and came straight to the ER. Patient is hypertensive 203/93 in the left arm, 160 over 82 in the right arm, 2+ pulses throughout. Warm extremities throughout. Previous ex lap scar seen, tender to palpation in the epigastrium with pain radiating towards her chest and back. Suspect potential vascular catastrophe such as aortic process versus intra-abdominal infection or bowel obstruction. Possibility of ACS. EKG obtained shows no signs of ischemia. Cardiac workup ordered and CT angiography obtained emergently. Patient treated with Dilaudid and placed on gambling monitor. CT angiography independently reviewed and also interpreted by Radiology. I do not appreciate any dissection but she does have a large thoracic ascending aneurysm. Measured at 5.2 cm per radiology read and last measurement was 4.6 and previously stable. Given this rapid enlargement concern is for impending rupture or dissection causing symptoms. Patient had recurrent pain after presentation but had significant improvement in blood pressure down to 134/66 after Dilaudid. She his given additional Dilaudid with improvement in pain control. Describes the pain in the center of her chest going towards her back and neck. Discussed the case with Cardiothoracic surgery at [facility] Dr. Holman. Patient was previously scheduled to follow-up for elective repair of this in March of this year but canceled that appointment and was lost to follow-up. Dr. Holman recommended ER to ER transfer for interventions and repair of her aorta. She remains hemodynamically stable at this time and I spoke to the ER physician doctors Dr. Mcelroy who accepted her to the ER emergently. ALS ambulance was arranged and patient was transferred without any further complications. Blood pressure parameters and pain protocols provided to the ALS crew for transport safely. Family members were able to accompany her on the ALS rig given the significant communication barrier with rare dialect being used but able to use [place]serratian with family members who were able to talk to patient. Patient left the department without any further issue. Medical Records Data Attestation: I reviewed the patient's medical records. Lab Data Attestation: I reviewed the patient's lab results. 01/16/25 01:01/16/25 01:26 Labs: Lab Results 01/16/25 01/16/25 01/16/25 Range/Units 01:26 01:28 01:56 WBC 5.8 (4.5-10.0) K/mm3 RBC 4.69 (4.2-5.4) M/mm3 Hgb 14.5 (12.0-15.0) g/dL Hct 41.7 (37.0-47.0) % MCV 88.9 (80-100) fl MCH 30.9 (26-34) pg MCHC 34.8 (32-36) g/dl RDW 12.1 (11.5-14.5) % Plt Count 179 (150-375) k/mm3 MPV 11.0 H (7.4-10.4) fl Immature Gran % (Auto) 0.2 (0-0.5) % Neut % (Auto) 37.4 L (45.5-73.1) % Lymph % (Auto) 49.4 H (18.3-44.2) % Evangeline % (Auto) 9.9 H (2.6-8.5) % Eos % (Auto) 2.4 (0-4.4) % Baso % (Auto) 0.7 (0.2-1.2) % Lymph # (Auto) 2.84 (0.9-3.2) K/mm3 Evangeline # (Auto) 0.6 (0.1-0.6) K/mm3 Eos # (Auto) 0.1 (0-0.3) K/mm3 Baso # (Auto) 0.0 (0.0-0.1) K/mm3 Abs Immat Gran (auto) 0.01 (0.00-0.031) K/mm3 Absolute Neuts (auto) 2.2 (1.3-6.7) K/mm3 Absolute Nucleated RBC 0.000 (0.0-0.012) K/mm3 Nucleated RBC % 0.0 (0.0-0.2) % PT 12.6 (11.1-14.7) Seconds INR 0.9 APTT 23.8 (22.3-36.8) Seconds Sodium 132 L (137-145) mmol/L Potassium 3.7 (3.4-5.0) mmol/L Chloride 99 (98-107) mmol/L Carbon Dioxide 24 (22-30) mmol/L Anion Gap 9 (4-12) mmol/L BUN 13 (7-17) mg/dL Creatinine 0.46 L (0.7-1.0) mg/dL Estim Creat Clear Calc Not Reportable Estimated GFR > 60 (59 - ) Glucose 443 H (65-110) mg/dL POC Capillary Glucose 428 H (65-105) mg/dl Lactic Acid 1.1 (0.7-2.0) mmol/L Calcium 9.0 (8.4-10.2) mg/dL Total Bilirubin 0.5 (0.2-1.3) mg/dL AST 27 (14-36) U/L ALT 20 (6-35) U/L Alkaline Phosphatase 230 H (38-126) U/L Troponin I 0.016 (0.000-0.034) ng/mL Total Protein 8.0 (6.3-8.2) g/dL Albumin 4.3 (3.5-5.1) g/dL Lipase 145 (23-300) U/L Urine Color Yellow (Yellow) Urine Appearance Clear (Clear) Urine pH 7.0 (5.0-9.0) Ur Specific [place] 1.032 (1.001-1.035) Urine Protein Negative (Negative) mg/dL Urine Glucose (UA) 3+ H (Negative) mg/dL Urine Ketones Negative (Negative) mg/dL Ur Blood (Man) Trace (Negative) Urine Nitrate Negative (Negative) Urine Bilirubin Negative (Negative) Urine Urobilinogen 0.2 (<2.0) mg/dL Leukocyte Esterase Rfl Negative (Negative) SAEED/UL Urine RBC 0-2 (0-2) /hpf Urine WBC 0-5 (0-3) /hpf Ur Squamous Epith Cells None seen (Few) /hpf Urine Bacteria None seen /hpf Urine Casts 0-2 01/16/25 Range/Units 04:10 WBC (4.5-10.0) K/mm3 RBC (4.2-5.4) M/mm3 Hgb (12.0-15.0) g/dL Hct (37.0-47.0) % MCV (80-100) fl MCH (26-34) pg MCHC (32-36) g/dl RDW (11.5-14.5) % Plt Count (150-375) k/mm3 MPV (7.4-10.4) fl Immature Gran % (Auto) (0-0.5) % Neut % (Auto) (45.5-73.1) % Lymph % (Auto) (18.3-44.2) % Evangeline % (Auto) (2.6-8.5) % Eos % (Auto) (0-4.4) % Baso % (Auto) (0.2-1.2) % Lymph # (Auto) (0.9-3.2) K/mm3 Evangeline # (Auto) (0.1-0.6) K/mm3 Eos # (Auto) (0-0.3) K/mm3 Baso # (Auto) (0.0-0.1) K/mm3 Abs Immat Gran (auto) (0.00-0.031) K/mm3 Absolute Neuts (auto) (1.3-6.7) K/mm3 Absolute Nucleated RBC (0.0-0.012) K/mm3 Nucleated RBC % (0.0-0.2) % PT (11.1-14.7) Seconds INR APTT (22.3-36.8) Seconds Sodium (137-145) mmol/L Potassium (3.4-5.0) mmol/L Chloride (98-107) mmol/L Carbon Dioxide (22-30) mmol/L Anion Gap (4-12) mmol/L BUN (7-17) mg/dL Creatinine (0.7-1.0) mg/dL Estim Creat Clear Calc Estimated GFR (59 - ) Glucose (65-110) mg/dL POC Capillary Glucose (65-105) mg/dl Lactic Acid (0.7-2.0) mmol/L Calcium (8.4-10.2) mg/dL Total Bilirubin (0.2-1.3) mg/dL AST (14-36) U/L ALT (6-35) U/L Alkaline Phosphatase (38-126) U/L Troponin I < 0.012 D (0.000-0.034) ng/mL Total Protein (6.3-8.2) g/dL Albumin (3.5-5.1) g/dL Lipase (23-300) U/L Urine Color (Yellow) Urine Appearance (Clear) Urine pH (5.0-9.0) Ur Specific [place] (1.001-1.035) Urine Protein (Negative) mg/dL Urine Glucose (UA) (Negative) mg/dL Urine Ketones (Negative) mg/dL Ur Blood (Man) (Negative) Urine Nitrate (Negative) Urine Bilirubin (Negative) Urine Urobilinogen (<2.0) mg/dL Leukocyte Esterase Rfl (Negative) SAEED/UL Urine RBC (0-2) /hpf Urine WBC (0-3) /hpf Ur Squamous Epith Cells (Few) /hpf Urine Bacteria /hpf Urine Casts ABG Data ABG results: 01/16/25 01:56 VBG pH 7.384 VBG pCO2 38.8 L VBG pO2 59.6 H VBG HCO3 22.6 L O2 Delivery Device Room air O2 Liters/Min Not Reportable FiO2 21 Attestation: I personally reviewed and interpreted this ABG as follows: Interpretation: No acidosis or acute issue Imaging Data Attestation: I personally reviewed and interpreted this imaging study as follows: My impression: Enlarging thoracic aortic aneurysm without dissection 5.2 cm Critical Care Time Critical Care Time Critical Care Time: Yes Total Critical Care Time: 75 Discharge Plan Discharge Clinical Impression: Enlarging aneurysm of aorta, Chest pain, Thoracic ascending aortic aneurysm Patient Disposition: Acute Care Hospital Condition: Serious Patient Language: Montserratian Prescriptions: No Action metformin 500 mg tablet 500 mg PO BID Qty: 60 0RF Levemir FlexTouch U100 Insulin 100 unit/mL (3 mL) insulin pen 10 unit SUBCUT meclizine 12.5 mg tablet 12.5 mg PO TID PRN (Reason: dizziness) Qty: 14 0RF cephalexin 500 mg capsule 500 mg PO Q6H 7 Days Qty: 28 0RF dicyclomine 20 mg tablet 20 mg PO TID Qty: 20 0RF meclizine 25 mg tablet 25 mg PO TID Qty: 20 0RF benzonatate 100 mg capsule 100 mg PO BID PRN (Reason: cough) Qty: 10 0RF meclizine 12.5 mg tablet 12.5 mg PO TID PRN (Reason: dizziness) Qty: 14 0RF tramadol 50 mg tablet 25 mg PO Q6H PRN (Reason: pain) Qty: 10 0RF lidocaine 5 % adhesive patch,medicated 1 patch topical DAILY PRN (Reason: pain) Qty: 15 0RF Rx Instructions: leave on most painful area for up to 12 hrs meclizine 25 mg tablet 25 mg PO TID Qty: 30 0RF acetaminophen [Tylenol Extra Strength] 500 mg tablet 1,000 mg PO Q6H PRN (Reason: pain) Qty: 50 0RF methocarbamol 750 mg tablet 750 mg PO TID Qty: 30 0RF omeprazole 20 mg capsule,delayed release(DR/EC) 20 mg PO DAILY 14 Days Qty: 14 0RF ibuprofen 600 mg tablet 600 mg PO TID PRN (Reason: pain) Qty: 20 0RF acetaminophen 500 mg capsule 1,000 mg PO Q6H PRN (Reason: pain) Qty: 20 0RF Follow-up/Referrals: UNKNOWN,DOCTOR [Primary Care Provider] Time of Disposition: 06:00
[2025-01-16 01:31] LABS: Hematocrit 41.7 % (37.0-47.0); Hemoglobin 14.5 g/dL (12.0-15.0); Immature Granulocyte Percent A 0.2 % (0-0.5); Lymphocytes Absolute Auto 2.84 K/mm3 (0.9-3.2); Mean Corpuscular HGB Conc 34.8 g/dl (32-36); Mean Corpuscular Hemoglobin 30.9 pg (26-34); Mean Corpuscular Volume 88.9 fl (80-100); Nucleated Red Blood Cells Absolute Auto 0.000 K/mm3 (0.0-0.012); Nucleated Red Blood Cells Perc 0.0 % (0.0-0.2); Platelet Count Result 179 k/mm3 (150-375); Red Blood Count 4.69 M/mm3 (4.2-5.4); White Blood Count 5.8 K/mm3 (4.5-10.0)
[2025-01-16 01:43] LABS: Alanine Aminotransferase 20 U/L (6-35); Albumin Level 4.3 g/dL (3.5-5.1); Alkaline Phosphatase 230 U/L (38-126); Anion Gap 9 mmol/L (4-12); Aspartate Amino Transferase 27 U/L (14-36); Bilirubin,Total 0.5 mg/dL (0.2-1.3); Blood Urea Nitrogen 13 mg/dL (7-17); Calcium 9.0 mg/dL (8.4-10.2); Carbon Dioxide 24 mmol/L (22-30); Chloride 99 mmol/L (98-107); Estimated Glomerular Filt Rate > 60; Glucose 443 mg/dL (65-110); INR 0.9; Lipase 145 U/L (23-300); Partial Thromboplastin Time 23.8 Seconds (22.3-36.8); Potassium 3.7 mmol/L (3.4-5.0); Prothrombin Time 12.6 Seconds (11.1-14.7); Sodium 132 mmol/L (137-145); Total Protein 8.0 g/dL (6.3-8.2)
[2025-01-16 01:54] LABS: Troponin I 0.016 ng/mL (0.000-0.034)
[2025-01-16] MEDS: HYDROmorphone HCL INJ (*CRX) 1 MG/ML SYR IV PUSH ×2 (02:02→05:24)
[2025-01-16 02:09] LABS: Non Pathogenic Casts 0-2
[2025-01-16 02:11] LABS: Fractional Inspired Oxygen 21 %; HCO3 VBG 22.6 mEq/l (24.0-30.0); PCO2 VBG 38.8 mmHg (42.0-48.0); PO2 VBG 59.6 mmHg (35.0-45.0); pH VBG 7.384 (7.300-7.400)
[2025-01-16 02:40] LABS: Add Urine Microscopic? YES; Appearance Urine Clear (Clear); Glucose Urine UA 3+ mg/dL (Negative); Leukocyte Esterase Ur Negative LEU/UL (Negative); Nitrate Urine Negative (Negative); Specific Grav Ur 1.032 (1.001-1.035)
[2025-01-16 04:49] LABS: Troponin I < 0.012 ng/mL (0.000-0.034)
== END 2025-01-16 05:43 | disposition short-term general hospital (02) ==
LOC: ANHED 02:44
PROVIDERS: Emergency Provider Student in an Organized Health Care Education/Training Program
DX: I71.21 Aneurysm of the ascending aorta, without rupture (principal); I10 Essential (primary) hypertension; E11.9 Type 2 diabetes mellitus without complications; E78.5 Hyperlipidemia, unspecified; Z86.73 Personal history of transient ischemic attack (TIA), and cerebral infarction without residual deficits; I70.1 Atherosclerosis of renal artery; Z79.84 Long term (current) use of oral hypoglycemic drugs; Z79.4 Long term (current) use of insulin
CPT/HCPCS: 36415; 71045; 71275; 74174; 80053; 81001; 82803; 82948; 83605; 83690; 84484; 85025; 85610; 85730; 93005; 96374; 96376; 99291; J1171; Q9967